=== PATIENT | female | born 1965 | race Caucasian/White ===

== ENCOUNTER 2019-03-20 10:58 | Emergency (ER) | payer OTHER ==
--- OUTSIDE RECORDS SUMMARY | 2019-03-20 11:07 | XMS REPORT | Clinical Summary ---
:1965 Author Organization [facility] Address [address] [place] [address] Care Team Providers Name Role Phone Blayne Land MD Primary Care Provider Allergies Active Allergy Reactions Severity Noted Date Comments Adhesive Tape-Silicones Dermatitis 03/08/2019 Sulfa (Sulfonamide Antibiotics) Rash Low 08/23/2016 Medications Medication Sig Dispensed Refills Start Date End Date Status lisinopril 1 tablet PO 3 08/17/2016 Active (PRINIVIL,ZESTRIL) 5 daily mg tablet traZODone (DESYREL) 1 tablet PO at 3 08/17/2016 Active 100 MG tablet night. CHOLECALCIFEROL, Take 1 tablet by 0 Active VITAMIN D3, (VITAMIN mouth daily. 1, D3 ORAL) 000 IU PO daily FOLIC ACID/VIT B Take 1 tablet by 0 Active COMPLEX AND C mouth daily. (NEPHRO-VINCE ORAL) esomeprazole (NexIUM) Take 40 mg by 0 Active 40 MG capsule mouth daily before breakfast. calcitriol Take 0.25 mcg by 0 Active (ROCALTROL) 0.25 MCG mouth daily. capsule darbepoetin vero in Inject 100 mg as 0 Active polysorbat (ARANESP, directed. IN POLYSORBATE, INJ) docusate sodium Take 1 capsule 20 capsule 0 03/12/2019 03/22/2019 Active (COLACE) 100 MG (100 mg total) capsule by mouth 2 (two) times a day for 10 days. traMADol (ULTRAM) 50 Take 1 tablet 30 tablet 0 03/12/2019 03/22/2019 Active mg tablet (50 mg total) by mouth every 8 (eight) hours as needed for moderate pain for up to 10 days. 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 Lab Lab Flory Cruz MD 03/06/2019 Lab Lab Flory Cruz MD 03/01/2019 Pre-Admit Testing Pre-Admission Jose Ramon Grijalva Preoperative Appointment Testing MD Eliud testing (Primary Dx) 02/27/2019 Telephone Transplant Kendra Osman Appointment 02/26/2019 Telephone Transplant SENTHIL Martinez Order JAMES Estrada 02/07/2019 Hospital Encounter Radiology Flory Cruz ESRD (end stage MD Aubree renal disease) ([facility]) 02/07/2019 Hospital Encounter Procedural Flory Cruz ESRD (end stage Cardiology MD Aubree renal disease) ([facility]) 02/07/2019 Office Visit Transplant Jose Ramon Samano MD Carrettin, Jennifer, LCSW 02/07/2019 Office Visit Transplant Vickey Schmidt ESRD (end stage MD Christal renal disease) ([facility]) (Primary Dx) 02/07/2019 Office Visit Transplant Flory Cruz ESRD (end stage MD Aubree renal disease) ([facility]) 02/01/2019 Hospital Encounter Radiology Jose Ramon Grijalva MD disease 02/01/2019 Hospital Encounter Radiology Jose Ramon Grijalva MD 02/01/2019 Hospital Encounter Transplant Joyce Paz ESRD (end stage MD Siri renal disease) ([facility]) 01/29/2019 Transcribe Orders Access Jose Ramon Grijalva MD (Primary Dx) 01/22/2019 Telephone Transplant Kendra Osman Appointment 01/16/2019 Documentation Transplant Michelle Butler, LAST 01/16/2019 Orders Only Transplant Maranon, ESRD (end stage Michelle, military professional disease) ([facility]) (Primary Dx) 01/08/2019 Hospital Encounter Transplant Flory Cruz MD 01/08/2019 Orders Only Transplant Maranon, ESRD (end stage Michelle, military professional disease) ([facility]) (Primary Dx) 01/03/2019 Hospital Encounter Transplant Joyce Paz ESRD (end stage Siri, renal disease) ([facility]) 12/28/2018 Orders Only Transplant Maranon, ESRD (end stage Michelle, military professional disease) ([facility]) (Primary Dx) 12/28/2018 Orders Only Transplant Maranon, ESRD (end stage Michelle, military professional disease) ([facility]) (Primary Dx) 12/11/2018 Telephone Transplant Natacha Cavanaugh MA Appointment 11/23/2018 Hospital Encounter Transplant Flory Cruz ESRD (end stage Aubree, renal disease) ([facility]) 10/26/2018 Hospital Encounter Transplant Flory Cruz ESRD (end stage MD Aubree renal disease) ([facility]) 10/03/2018 Documentation Transplant Oscar Cramer TXP - AET[employer] NME - RENAL TXP APPRVL 09/28/2018 Hospital Encounter Transplant Flory Cruz ESRD (end stage MD Aubree renal disease) ([facility]) 08/31/2018 Hospital Encounter Transplant Flory Cruz ESRD (end stage Aubree, renal disease) Jose Ramon Samano ([facility]) MD Samson 07/26/2018 Hospital Encounter Transplant Flory Cruz ESRD (end stage MD Aubree renal disease) ([facility]) 06/29/2018 Hospital Encounter Transplant Kip Cruzmed ESRD (end stage Osajames, renal disease) ([facility]) 06/01/2018 Hospital Encounter Transplant Kip Cruzmed ESRD (end stage Osajames, renal disease) 04/27/2018 Hospital Encounter Transplant Kip Cruzmed ESRD (end stage Osajames, renal disease) 03/30/2018 Hospital Encounter Transplant Kip Cruzmed ESRD (end stage Osama, renal disease) 03/30/2018 Telephone Transplant Natacha Cavanaugh MA Appointment after 03/19/2018 Family History Medical History Relation Name Comments Heart disease Brother Freddy Heart disease Father Clif Kidney disease Father Clif Diabetes Mother Angela mohan Heart disease Mother Angela mohan Cancer Sister Desiree Heart disease Sister Desiree Heart disease Sister Мария Relation Name Status Comments Brother Freddy Alive Father Clif (Age 76) Heart disease / Kidney disease Mother Angela preston (Age 80) Sister Desiree Alive breast cancer Sister Whitney Alive Gastric bypass surgery Sister Мария (Age 62) heart disease Social History Tobacco Use Types Packs/Day Years Used Date Never Smoker Smokeless Tobacco: Never Used Alcohol Use Drinks/Week oz/Week Comments No Sex Assigned at Date Recorded Not on file Job Start Date Occupation Industry Not on file Not on file Not on file Travel History Travel Start Travel End No recent travel history available. Last Filed Vital Signs Vital Sign Reading Time Taken Blood Pressure 122/66 03/12/2019 12:14 PM CDT Pulse 77 03/12/2019 12:14 PM CDT Temperature 36.3 C (97.4 F) 03/12/2019 12:14 PM CDT Respiratory Rate 16 03/12/2019 12:14 PM CDT Oxygen Saturation 97% 03/12/2019 12:14 PM CDT Inhaled Oxygen Concentration - - Weight 80.1 kg (176 lb 8 oz) 03/10/2019 3:49 PM CDT Height 170.2 cm (5' 7") 03/08/2019 6:00 AM CDT Body Mass Index 27.64 03/08/2019 6:00 AM CDT Plan of Treatment Date Type Specialty Care Team Description 03/29/2019 Lab Transplant Joyce Paz MD [address] [facility] [address] [place] [address] [phone] 04/26/2019 Lab Transplant Joyce Paz MD [address] [facility] [address] [place] [address] [phone] 05/31/2019 Lab Transplant Joyce Paz MD [address] [facility] [address] [place] [address] [phone] 06/28/2019 Lab Transplant Joyce Paz MD [address] [facility] [address] [place] [address] [phone] 07/26/2019 Lab Transplant Joyce Paz MD [address] [facility] [address] [place] [address] [phone] 08/30/2019 Lab Transplant Joyce Paz MD [address] [facility] [address] [place] [address] [phone] Health Maintenance Due Date Last Done Comments SHINGLES VACCINES (#1) 2015 INFLUENZA VACCINE 04/18/2019 07/15/2018 BREAST CANCER SCREENING 09/04/2019 09/04/2017, 09/04/2017 COLONOSCOPY SCREENING 07/26/2022 07/26/2017 Implants Implanted Type Area Integration Technician Device Shelf Model / Identifier Expiration Serial / Date Lot Clip Ligtng Hem-O-Jaylyn Endoscpc Aplr [facility] Lg - [id number] Medical N/A: N/A WECK CLOSURE [id number] / Implanted: Qty: 2 on 03/08/2019 by Jose Ramon Grijalva MD Clips for SYSTEMS / Internal Use Dilator Baln Fxdwr [id number] 15-16.5-18mm Cre - [id number] Surgical N/A: N/A [facility] ENDOSCOPY [id number] / Implanted: 07/26/2017 (Quantity not on file) Implants; / Expanders; Extenders; Surgical Wires Procedures Procedure Name Priority Date/Time Associated Comments Diagnosis HEMOGLOBIN & Routine 03/12/2019 6:00 Results for this HEMATOCRIT AM CDT procedure are in the results section. ESTIMATED GFR Routine 03/12/2019 4:00 Results for this AM CDT procedure are in the results section. BASIC METABOLIC PANEL Routine 03/12/2019 4:00 Results for this AM CDT procedure are in the results section. TRANSFUSE RED BLOOD STAT 03/11/2019 11:31 CELLS AM CDT IONIZED CALCIUM Routine 03/11/2019 8:20 Results for this AM CDT procedure are in the results section. SMEAR REVIEW Routine 03/11/2019 5:00 Results for this AM CDT procedure are in the results section. ESTIMATED GFR Routine 03/11/2019 5:00 Results for this AM CDT procedure are in the results section. ALBUMIN LEVEL Routine 03/11/2019 5:00 Results for this AM CDT procedure are in the results section. IONIZED CALCIUM Routine 03/11/2019 5:00 Results for this AM CDT procedure are in the results section. BASIC METABOLIC PANEL Routine 03/11/2019 5:00 Results for this AM CDT procedure are in the results section. HEMOGLOBIN & Routine 03/11/2019 5:00 Results for this HEMATOCRIT AM CDT procedure are in the results section. HEMODIALYSIS Routine 03/10/2019 4:46 PM CDT PREPARE RBC STAT 03/10/2019 2:35 Results for this PM CDT procedure are in the results section. TYPE AND SCREEN Routine 03/10/2019 2:35 Results for this PM CDT procedure are in the results section. HEMOGLOBIN & STAT 03/10/2019 2:35 Results for this HEMATOCRIT PM CDT procedure are in the results section. ESTIMATED GFR Routine 03/10/2019 5:15 Results for this AM CDT procedure are in the results section. TOTAL IRON BINDING Routine 03/10/2019 5:15 Results for this CAPACITY AM CDT procedure are in the results section. FERRITIN LEVEL Routine 03/10/2019 5:15 Results for this AM CDT procedure are in the results section. PHOSPHORUS LEVEL Routine 03/10/2019 5:15 Results for this AM CDT procedure are in the results section. MAGNESIUM LEVEL Routine 03/10/2019 5:15 Results for this AM CDT procedure are in the results section. BASIC METABOLIC PANEL Routine 03/10/2019 5:15 Results for this AM CDT procedure are in the results section. HEMOGLOBIN & Routine 03/10/2019 5:15 Results for this HEMATOCRIT AM CDT procedure are in the results section. HEPATITIS B SURFACE Routine 03/09/2019 10:36 Results for this ANTIGEN AM CDT procedure are in the results section. HC COMPLETE BLD COUNT Routine 03/09/2019 7:25 Results for this W/AUTO DIFF AM CDT procedure are in the results section. ESTIMATED GFR Routine 03/09/2019 4:00 Results for this AM CDT procedure are in the results section. BASIC METABOLIC PANEL Routine 03/09/2019 4:00 Results for this AM CDT procedure are in the results section. HEMOGLOBIN & STAT 03/08/2019 7:55 Results for this HEMATOCRIT PM CDT procedure are in the results section. HEMODIALYSIS Routine 03/08/2019 5:24 PM CDT SURGICAL PATHOLOGY Routine 03/08/2019 3:22 Results for this REQUEST PM CDT procedure are in the results section. ESTIMATED GFR STAT 03/08/2019 1:28 Results for this PM CDT procedure are in the results section. BASIC METABOLIC PANEL STAT 03/08/2019 1:28 Results for this PM CDT procedure are in the results section. HEMOGLOBIN & STAT 03/08/2019 1:15 Results for this HEMATOCRIT PM CDT procedure are in the results section. MI AN ELECTIVE Routine 03/08/2019 8:27 ENDOTRACHEAL AIRWAY AM CDT Procedure Note - Priya Zepeda CRNA - 03/08/2019 8:27 AM CDT Airway Date/Time: 03/08/2019 8:27 AM Performed by: Priya Zepeda CRNA Authorized by: Tristin Price DO Location: OR Urgency: Elective Difficult Airway: No Anesthesiologist: Tristin Price DO Resident/ENTRY LEVEL PARALEGAL/AA: Priya Zepeda CRNA Preoxygenated with 100% O2: Yes C-spine Precautions Maintained Throughout: Yes Mask Ventilation: Easy mask (w OPA) Final Airway Type: Endotracheal airway Final Endotracheal Airway: ETT Technique Used: Direct laryngoscopy Devices/Methods Used in Placement: Intubating stylet Insertion Site: Oral Blade Type: Cristina Laryngoscope Blade/Videolaryngoscope Blade Size: 2 ETT Size (mm): 7.0 Measured from: Lips ETT to Lips (cm): 22 Placement Verified by: CO2 detection, direct visualization and equal breath sounds Laryngoscopic view: Grade I - full view of glottis Rapid Sequence Induction (RSI): No Number of Attempts at Approach: 1 Eyes taped/ lubed after LOLR, atraumatic DL, lips/teeth unchanged from preop conditions NEPHRECTOMY, 03/08/2019 7:30 Polycystic kidney LAPAROSCOPIC AM CDT disease POC PANEL Routine 03/08/2019 6:42 Results for this AM CDT procedure are in the results section. ESTIMATED GFR Routine 03/08/2019 6:42 Results for this AM CDT procedure are in the results section. SINGLE ANTIGEN BEADS Routine 03/06/2019 2:52 Results for this PM CDT procedure are in the results section. TYPE AND SCREEN Routine 03/01/2019 11:09 Preoperative testing Results for this AM CDT procedure are in the results section. GRAM STAIN Routine 02/07/2019 1:37 Results for this PM CDT procedure are in the results section. URINE CULTURE Routine 02/07/2019 1:37 Results for this PM CDT procedure are in the results section. XR CHEST 2 VW Routine 02/07/2019 12:11 ESRD (end stage Results for this PM CDT renal disease) ([facility]) procedure are in the results section. C1Q CLASS 1 & 2 Routine 02/07/2019 10:45 Results for this ANTIBODY AM CDT procedure are in the results section. SAB CLASS 1 & 2 WITH Routine 02/07/2019 10:45 Results for this DILUTIONS AM CDT procedure are in the results section. SYPHILIS TOTAL ANTIBODY Routine 02/07/2019 10:45 Results for this AM CDT procedure are in the results section. ESTIMATED GFR Routine 02/07/2019 10:45 Results for this AM CDT procedure are in the results section. URINALYSIS SCREEN AND Routine 02/07/2019 10:45 ESRD (end stage Results for this MICROSCOPY, WITH REFLEX AM CDT renal disease) ([facility]) procedure are in TO CULTURE the results section. TB T-SPOT Routine 02/07/2019 10:45 ESRD (end stage Results for this AM CDT renal disease) ([facility]) procedure are in the results section. HEPATITIS C VIRUS Routine 02/07/2019 10:45 ESRD (end stage Results for this QUANTITATIVE BY PCR AM CDT renal disease) ([facility]) procedure are in the results section. PARATHYROID HORMONE Routine 02/07/2019 10:45 ESRD (end stage Results for this AM CDT renal disease) ([facility]) procedure are in the results section. KARLENE-LOPEZ VIRUS Routine 02/07/2019 10:45 ESRD (end stage Results for this ANTIBODY TEST AM CDT renal disease) ([facility]) procedure are in the results section. CYTOMEGALOVIRUS AB, IGM Routine 02/07/2019 10:45 ESRD (end stage Results for this AM CDT renal disease) ([facility]) procedure are in the results section. CYTOMEGALOVIRUS AB, IGG Routine 02/07/2019 10:45 ESRD (end stage Results for this AM CDT renal disease) ([facility]) procedure are in the results section. LDH Routine 02/07/2019 10:45 ESRD (end stage Results for this AM CDT renal disease) ([facility]) procedure are in the results section. PHOSPHORUS LEVEL Routine 02/07/2019 10:45 ESRD (end stage Results for this AM CDT renal disease) ([facility]) procedure are in the results section. TRIGLYCERIDES Routine 02/07/2019 10:45 ESRD (end stage Results for this AM CDT renal disease) ([facility]) procedure are in the results section. CHOLESTEROL Routine 02/07/2019 10:45 ESRD (end stage Results for this AM CDT renal disease) ([facility]) procedure are in the results section. C-PEPTIDE Routine 02/07/2019 10:45 ESRD (end stage Results for this AM CDT renal disease) ([facility]) procedure are in the results section. PARTIAL THROMBOPLASTIN Routine 02/07/2019 10:45 ESRD (end stage Results for this TIME (PTT) AM CDT renal disease) ([facility]) procedure are in the results section. PROTHROMBIN TIME WITH Routine 02/07/2019 10:45 ESRD (end stage Results for this INR AM CDT renal disease) ([facility]) procedure are in the results section. HC COMPLETE BLD COUNT Routine 02/07/2019 10:45 ESRD (end stage Results for this W/AUTO DIFF AM CDT renal disease) ([facility]) procedure are in the results section. HEPATITIS C ANTIBODY Routine 02/07/2019 10:45 ESRD (end stage Results for this AM CDT renal disease) ([facility]) procedure are in the results section. HEPATITIS B SURFACE AB, Routine 02/07/2019 10:45 ESRD (end stage Results for this QUANTITATIVE AM CDT renal disease) (HCC) procedure are in the results section. HEPATITIS B SURFACE Routine 02/07/2019 10:45 ESRD (end stage Results for this ANTIGEN AM CDT renal disease) (HCC) procedure are in the results section. HEPATITIS B SURFACE Routine 02/07/2019 10:45 ESRD (end stage Results for this ANTIBODY AM CDT renal disease) (HCC) procedure are in the results section. HEPATITIS B CORE Routine 02/07/2019 10:45 ESRD (end stage Results for this ANTIBODY TOTAL AM CDT renal disease) (HCC) procedure are in the results section. HIV AG/AB COMBINATION Routine 02/07/2019 10:45 ESRD (end stage Results for this AM CDT renal disease) (HCC) procedure are in the results section. COMPREHENSIVE METABOLIC Routine 02/07/2019 10:45 ESRD (end stage Results for this PANEL AM CDT renal disease) (HCC) procedure are in the results section. ECHOCARDIOGRAM 2D Routine 02/07/2019 9:00 ESRD (end stage Results for this COMPLETE W MMODE AM CDT renal disease) (HCC) procedure are in SPECTRAL COLOR DOPPLER the results (65446) section. MRI PELVIS WO CONTRAST Routine 02/01/2019 3:12 Polycystic kidney Results for this PM CDT procedure are in the results section. MRI ABDOMEN WO CONTRAST Routine 02/01/2019 2:45 Polycystic kidney Results for this PM CDT disease procedure are in the results section. SINGLE ANTIGEN BEADS Routine 02/01/2019 12:20 Results for this PM CDT procedure are in the results section. SINGLE ANTIGEN BEADS Routine 01/03/2019 1:05 Results for this PM CDT procedure are in the results section. C1Q CLASS 1 & 2 Routine 11/23/2018 9:57 Results for this ANTIBODY AM HOOP MAKER HELPER MACHINE procedure are in the results section. SINGLE ANTIGEN BEADS Routine 11/23/2018 9:57 Results for this AM HO[employer] MAKER HELPER MACHINE procedure are in the results section. C1Q CLASS 1 & 2 Routine 10/26/2018 11:07 Results for this ANTIBODY AM HOOP MAKER HELPER MACHINE procedure are in the results section. SINGLE ANTIGEN BEADS Routine 10/26/2018 11:07 Results for this AM HOOP MAKER HELPER MACHINE procedure are in the results section. C1Q CLASS 1 & 2 Routine 09/28/2018 11:33 Results for this ANTIBODY AM HOOP MAKER HELPER MACHINE procedure are in the results section. SINGLE ANTIGEN BEADS Routine 09/28/2018 11:33 Results for this AM HOOP MAKER HELPER MACHINE procedure are in the results section. C1Q CLASS 1 & 2 Routine 08/31/2018 8:50 Results for this ANTIBODY AM HO[employer] MAKER HELPER MACHINE procedure are in the results section. SINGLE ANTIGEN BEADS Routine 08/31/2018 8:50 Results for this AM HO[employer] MAKER HELPER MACHINE procedure are in the results section. C1Q CLASS 1 & 2 Routine 07/26/2018 10:05 Results for this ANTIBODY AM HOOP MAKER HELPER MACHINE procedure are in the results section. SINGLE ANTIGEN BEADS Routine 07/26/2018 10:05 Results for this AM HOOP MAKER HELPER MACHINE procedure are in the results section. C1Q CLASS 1 & 2 Routine 06/29/2018 12:21 Results for this ANTIBODY PM CDT procedure are in the results section. SINGLE ANTIGEN BEADS Routine 06/29/2018 12:21 Results for this PM CDT procedure are in the results section. C1Q CLASS 1 & 2 Routine 06/01/2018 11:40 Results for this ANTIBODY AM CDT procedure are in the results section. SINGLE ANTIGEN BEADS Routine 06/01/2018 11:40 Results for this AM CDT procedure are in the results section. C1Q CLASS 1 & 2 Routine 04/27/2018 9:10 Results for this ANTIBODY AM CDT procedure are in the results section. SINGLE ANTIGEN BEADS Routine 04/27/2018 9:10 Results for this AM CDT procedure are in the results section. SINGLE ANTIGEN BEADS Routine 03/30/2018 1:55 Results for this PM CDT procedure are in the results section. C1Q CLASS 1 & 2 Routine 03/30/2018 1:55 Results for this ANTIBODY PM CDT procedure are in the results section. after 03/19/2018 Results Hemoglobin & hematocrit (03/12/2019 6:00 AM CDT)Only the most recent of6 resultswithin the time period is included. [facility] HGB 8.6 (L) 12.0 - 16.0 g/dL [facility] HCT 26.6 (L) 37.0 - 47.0 % [facility] Specimen Blood Performing Organization Address City/[facility] Cent[facility]ode Phone Number [facility] DEPARTMENT OF PATHOLOGY AND [address] [place] [address] Estimated GFR (03/12/2019 4:00 AM CDT)Only the most recent of7 resultswithin the time period is included. [facility] Estimated GFR 8 (A) mL/min/1.73 [facility] Comment: HOSPITAL CatergoryUnitsInterpretation G1 >=90 Normal or high G2 60-89Mildly decreased C6w25-14Wskpnc to moderately decreased W5v99-59Fzneefqlli to severely decreased G4 15-29Severely decreased G5 <15Kidney failure The eGFR was calculated using the Chronic Kidney Disease Epidemiology Collaboration (CKD-EPI) equation. Interpretation is based on recommendations of the National Kidney Foundation-Kidney Disease Outcomes Quality Initiative (NKF-KDOQI) published in 2014. Specimen Plasma specimen Performing Organization Address City/[facility]/Zipcode Phone Number [facility] DEPARTMENT OF PATHOLOGY AND [address] [place] [address] Basic metabolic panel (03/12/2019 4:00 AM CDT)Only the most recent of5 resultswithin the time period is included. [facility] Sodium 134 (L) 135 - 148 mEq/L [facility] Potassium 3.8 3.5 - 5.0 mEq/L [facility] Chloride 92 (L) 98 - 112 mEq/L [facility] CO2 27 24 - 31 mEq/L [facility] Anion gap 15@ANIO 7 - 15 mEq/L [facility] BUN 25 (H) 6 - 20 mg/dL [facility] Creatinine 5.72 (H) 0.50 - 0.90 mg/dL [facility] Glucose 88 65 - 99 mg/dL [facility] Calcium 8.6 8.3 - 10.2 mg/dL [facility] Specimen Plasma specimen Performing Organization Address City/[facility] Centercode Phone Number [facility] DEPARTMENT OF PATHOLOGY AND [address] [place] [address] Transfuse RBC (03/11/2019 11:31 AM CDT)Only the most recent of2 resultswithin the time period is included.Ionized calcium (03/11/2019 8:20 AM CDT)Only the most recent of2 resultswithin the time period is included. Pathologist [facility] pH 7.37 [facility] Ionized calcium 1.12 1.11 - 1.32 mmol/L [facility] Specimen Plasma specimen Performing Organization Address [facility]/[place] Phone Number [facility] DEPARTMENT OF PATHOLOGY AND [address] [place] [phone] Smear review (03/11/2019 5:00 AM CDT) Pathologist [facility] Smear review Smear Reviewed [facility] Specimen Performing Organization Address [facility]/[place] Phone Number [facility] DEPARTMENT OF PATHOLOGY AND [address] [place] [phone] Albumin level (03/11/2019 5:00 AM CDT) Pathologist [facility] Albumin 2.4 (L) 3.5 - 5.0 g/dL [facility] Specimen Plasma specimen Performing Organization Address [facility]/[place] Phone Number [facility] DEPARTMENT OF PATHOLOGY AND [address] [place] [phone] Prepare RBC, 1 Units (03/10/2019 2:35 PM CDT) Product name Red Cells AS1 [facility] – [place] Unit number [id number] [facility] Product code [id number] [facility] Dispense status Transfused [facility] Blood expiration [id number] [facility] Blood type code 7300 [facility] Blood type B POSITIVE [facility] Specimen Blood Performing Organization Address City/[facility]/[place] Phone Number [facility] DEPARTMENT OF PATHOLOGY AND [address] [place] [phone] Type and screen (03/10/2019 2:35 PM CDT)Only the most recent of2 resultswithin the time period is included. ABO grouping B [facility] Rh type POS [facility] Antibody screen (gel) NEG [facility] Specimen Performing Organization Address [facility]/[place] Phone Number [facility] DEPARTMENT OF PATHOLOGY AND [address] [place] [address] [phone] Total iron binding capacity (03/10/2019 5:15 AM CDT) Iron level 20 (L) 37 - 145 ug/dL [facility] Iron binding capacity 177 (L) 200 - 400 ug/dL [facility] % Saturation 11.3 (L) 15.0 - 38.0 % [facility] Specimen Plasma specimen Performing Organization Address [facility] Phone Number [facility] DEPARTMENT OF PATHOLOGY AND [address] [place] [address] [phone] Phosphorus level (03/10/2019 5:15 AM CDT)Only the most recent of2 resultswithin the time period is included. Phosphorus 3.3 2.4 - 4.5 mg/dL [facility] Specimen Plasma specimen Performing Organization Address City/[facility] Phone Number [facility] DEPARTMENT OF PATHOLOGY AND [address] [place] [phone] Magnesium level (03/10/2019 5:15 AM CDT) Magnesium 1.9 1.6 - 2.6 mg/dL [facility] Specimen Plasma specimen Performing Organization Address City/[facility]/Zipcode Phone Number [facility] DEPARTMENT OF PATHOLOGY AND [address] [place] [phone] [place] [address] 15942 Ferritin level (03/10/2019 5:15 AM CDT) Ferritin level 89 13 - 150 ng/mL [facility] Specimen Plasma specimen Performing Organization Address City/[facility] Phone Number [facility] DEPARTMENT OF PATHOLOGY AND [address] [place] [address] [phone] Hepatitis B surface antigen (03/09/2019 10:36 AM CDT)Only the most recent of2 resultswithin the time period is included. Hepatitis B surface Non-reactive Non-reactive [facility] Specimen Performing Organization Address City/[facility]ercode Phone Number [facility] DEPARTMENT OF PATHOLOGY AND [address] [place] [address] [phone] CBC with platelet and differential (03/09/2019 7:25 AM CDT)Only the most recent of2 resultswithin the time period is included. WBC 8.86 4.50 - 11.00 [facility] k/uL [facility] RBC 2.43 (L) 4.20 - 5.50 [facility] m/[facility] HGB 7.2 (L) 12.0 - 16.0 [facility] g/dL [facility] HCT 22.7 (L) 37.0 - 47.0 % [facility] MCV 93.4 82.0 - 100.0 [facility] MCH 29.6 27.0 - 34.0 pg [facility] MCHC 31.7 31.0 - 37.0 [facility] RDW - SD 47.3 37.0 - 55.0 fL [facility] MPV 10.9 8.8 - 13.2 fL [facility] Platelet count 146 (L) 150 - 400 k/uL [facility] Nucleated RBC 0.00 /100 WBC [facility] Neutrophils 81.4 (H) 39.0 - 69.0 % [facility] Lymphocytes 9.4 (L) 25.0 - 45.0 % [facility] Monocytes 8.7 0.0 - 10.0 % [facility] Eosinophils 0.1 0.0 - 5.0 % [facility] Basophils 0.1 0.0 - 1.0 % [facility] Immature granulocytes 0.3Comment: 0.0 - 1.0 % [facility] "Immature HOSPITAL granulocytes" (promyelocytes , myelocytes, metamyelocytes ) Specimen Blood Performing Organization Address City/[facility] Phone Number [facility] DEPARTMENT OF PATHOLOGY AND [address] [place] [address] [phone] Surgical pathology request (03/08/2019 3:22 PM CDT) [facility] DEPARTMENT OF PATHOLOGY AND GENOMIC MEDICINE Surgical pathology See link below [facility] DEPARTMENT OF report for PDF Lab PATHOLOGY AND Report GENOMIC MEDICINE Result status This is Final [facility] DEPARTMENT OF Report for PATHOLOGY AND [id number] GENOMIC MEDICINE Specimen Performing Organization Address [facility]/[place] Phone Number [facility] DEPARTMENT OF PATHOLOGY AND [address] [place] [address] [phone] GENOMIC MEDICINE POC panel (03/08/2019 6:42 AM CDT) POC sodium 139 135 - 148 [facility] mmol/L [facility] POC potassium 3.8 3.5 - 5.0 [facility] chloride 105 99 - 109 mmol/L [facility] POC CO2 26 24 - 31 mmol/L [facility] POC glucose 99 65 - 99 mg/dL [facility] POC BUN 31 (H) 8 - 24 mg/dL [facility] POC creatinine 4.8 (H) 0.5 - 0.9 mg/dl [facility] POC hematocrit 32 (L) 37 - 47 % [facility] POC anion gap 12 8 - 20 mmol/L [facility] Comment: HOSPITAL Meter ID: [id number] Spring Inspector: Fernando Cardoso Specimen Performing Organization Address City/[facility]/Zipcode Phone Number [facility] DEPARTMENT OF PATHOLOGY AND [address] [place], [place] [phone] GENOMIC MEDICINE [address] [address] Single antigen beads (03/06/2019 2:52 PM CDT)Only the most recent of12 resultswithin the time period is included. SAB serum ID [id number] [facility] SAB serum collection 03/06/2019 02:52 [facility]PITAL SAB class I antibody Negative [facility] SAB cPRA class I 0 [facility] SAB class II Negative [facility] SAB cPRA class II 0 [facility] Single antigen beads See link below [facility] for PDF Lab HOSPITAL Report Specimen Blood Performing Organization Address [facility] Centercond Phone Number [facility] DEPARTMENT OF PATHOLOGY AND [address] [place] [address] Gram stain (02/07/2019 1:37 PM CDT) Pathologist [facility] Gram stain result Rare WBC's [facility] Moderate Gram positive rods HOSPITAL Comment: Specimen Information Specimen Source: Urine Specimen Site: Clean catch Specimen Urine Performing Organization Address City/[facility] Centercond Phone Number [facility] DEPARTMENT OF PATHOLOGY AND [address] [place] [address] [phone] Urine culture (02/07/2019 1:37 PM CDT) Pathologist [facility] Urine culture Mixed barb <=10-3 col/cc [facility] isolate Comment: HOSPITAL Specimen Information Specimen Source: Urine Specimen Site: Clean catch Specimen Urine Performing Organization Address [facility]/[place] Phone Number [facility] DEPARTMENT OF PATHOLOGY AND [address] [place] [address] XR Chest 2 Vw (02/07/2019 12:11 PM CDT) Specimen Narrative Performed At EXAMINATION:XR CHEST 2 VW RADIANT CLINICAL HISTORY: N18.6 End stage renal disease, transplant update COMPARISON:08/23/2017 IMPRESSION: No active disease in the chest. Lungs are clear. Cardiomediastinal silhouette is within normal limits. No effusion or pneumothorax noted. Visualized osseous structures are intact. [facility]-[id number] Procedure Note Hm Interface, Radiology Results Incoming - 02/07/2019 12:25 PM CDT EXAMINATION: XR CHEST 2 VW CLINICAL HISTORY: N18.6 End stage renal disease, transplant update COMPARISON: 08/23/2017 IMPRESSION: No active disease in the chest. Lungs are clear. Cardiomediastinal silhouette is within normal limits. No effusion or pneumothorax noted. Visualized osseous structures are intact. [id number] Performing Organization Address City/[facility]/Zipcode Phone Number [facility] [address] [place] [address] [phone] SAB class 1 & 2 with dilutions (02/07/2019 10:45 AM CDT) [facility] SAB class 1 & 2 See link below [facility] with dilutions for PDF Lab HOSPITAL Report Specimen Blood Performing Organization Address City/[facility]ercode Phone Number [facility] DEPARTMENT OF PATHOLOGY AND [address] [place] [address] C1Q class 1 & 2 antibody (02/07/2019 10:45 AM CDT)Only the most recent of10 resultswithin the time period is included. [facility] C1Q class 1 & 2 See link below [facility] antibody for PDF Lab HOSPITAL Report Specimen Blood Performing Organization Address [facility] Centercond Phone Number [facility] DEPARTMENT OF PATHOLOGY AND [address] [place] [address] Urinalysis screen and microscopy, with reflex to culture (02/07/2019 10:45 AM CDT) Specimen site Clean catch [facility] Color, UA Straw [facility] Appearance, UA Hazy [facility] Specific gravity, UA 1.009 1.001 - 1.035 [facility] pH, UA 6.0 5.0 - 8.5 [facility] Protein, UA 1+ (A) Negative [facility] Glucose, UA Negative Negative [facility] Ketones, UA Negative Negative [facility] Bilirubin, UA Negative Negative [facility] Blood, UA Negative Negative [facility] Nitrite, UA Negative Negative [facility] Urobilinogen, UA <2.0 <2.0 [facility] Leukocyte esterase, Trace (A) Negative [facility] Epithelial cells, UA 4 /HPF [facility] WBC, UA 5 (H) 0 - 4 /HPF [facility] RBC, UA 1 0 - 5 /HPF [facility] Bacteria, UA None seen None seen [facility] Yeast, UA None seen [facility] Yeast with None seen [facility] pseudohyphae, UA [facility] Specimen Urine Performing Organization Address City/State/Zipcode Phone Number [facility] DEPARTMENT OF PATHOLOGY AND [address] [place] [address] Syphilis total antibody (02/07/2019 10:45 AM CDT) Pathologist [facility] Syphilis total Non-reactiveComment Non-reactive [facility] antibody : No serological HOSPITAL evidence of syphilis infection. Specimen Serum Performing Organization Address City/[facility]/Zipcode Phone Number [facility] DEPARTMENT OF PATHOLOGY AND [address] [place] [address] Karlene-Lopez virus antibody test (02/07/2019 10:45 AM CDT) Pathologist [facility] EBV Ab to viral capsid Positive (A) Negative [facility] Ag, IgG HOSPITAL EBV Ab to viral capsid Negative Negative [facility] Ag, IgM HOSPITAL EBV Ab to nuclear Ag, Positive (A) Negative [facility] IgG HOSPITAL EBV Ab to early (D) Negative Negative [facility] Ag, IgG HOSPITAL Karlene-Lopez virus SEE [facility] antibody COMMENTComment: HOSPITAL interpretation Infection Status: Results may suggest past EBV infection. Specimen Serum Performing Organization Address City/[facility] Centercode Phone Number [facility] DEPARTMENT OF PATHOLOGY AND [address] [place] [address] HIV Ag/Ab combination (02/07/2019 10:45 AM CDT) Pathologist [facility] HIV Ag/Ab combination Non-reactive Non-reactive [facility] Specimen Blood Performing Organization Address City/State/Zipcode Phone Number [facility] DEPARTMENT OF PATHOLOGY AND [address] [place], [place] [phone] TB T-SPOT (02/07/2019 10:45 AM CDT) Pathologist [facility] TB T-SPOT SEE NOTE [facility] RE[facility] Comment: LAB T-SPOT TUBERCULOSIS Nil Control: PASSED Panel A: 0 Panel B: 4 Positive Control: PASSED Result:NEGATIVE NOTE: TMTC INDICATES TOO MANY SPOTS TO COUNT SAT INDICATES THE WELL WAS SATURATED RESULTS INTERPRETATION: RESULTS ARE NEGATIVE WHEN (PANEL A-NIL) OR (PANEL B-NIL) <=4 SPOTS, INCLUDING VALUES LESS THAN ZERO. RESULTS ARE POSITIVE WHEN (PANEL A-NIL) OR (PANEL B-NIL) >=8 SPOTS RESULTS ARE BORDERELINE WHEN EITHER (PANEL A-NIL) OR (PANEL B-NIL)=5,6,0R 7. THE TEST IS INVALID WHEN EITHER OF THE FOLLOWING CONDITIONS IS MET: 1.) THE NIL CONTROL HAS >10 SPOTS 2.) THE MITOGEN (POSITIVE CONTROL) HAS <20 SPOTS AND BOTH (PANEL A-NIL) AND (PANEL B-NIL) <=4 SPOTS. M. TUBERCULOSIS INFECTION UNLIKELY, BUT CANNOT BE EXCLUDED ESPECIALLY WHEN: 1. ANY ILLNESS IS CONSISTENT WITH TB DISEASE. 2. LIKELIHOOD OF PROGRESSION TO DISEASE (e.g. DUE TO IMMUNOSUPPRESSION) IS INCREASED. LIMITATIONS: DIAGNOSING OR EXCLUDING TUBERCULOSIS DISEASE, AND ASSESSING THE PROBABILITY OF LTBI, REQUIRES A COMBINATION OF EPIDEMIOLOGICAL, HISTORICAL, MEDICAL, AND DIAGNOSTIC FINDINGS THAT SHOULD BE TAKEN INTO ACCOUNT WHEN INTERPRETING T-SPOT.TB REFER TO THE MOST RECENT CDC GUIDANCE (HTTP: //WWW.CDC.GOV/NCHSTP/TB) FOR DETAILED RECOMMENDATIONS ABOUT DIAGNOSING TB INFECTION (INCLUDING DISEASE) AND SELECTING PERSONS FOR TESTING. 1.) A FALSE NEGATIVE RESULT CAN BE CAUSED BY INCORRECT BLOOD SAMPLE COLLECTION OR IMPROPER HANDLING OF THE SPECIMEN, AFFECTING LYMPHOCYTE FUNCTION 2.) THE PERFORMANCE OF T-SPOT.TB HAS NOT BEEN ADEQUATELY EVALUATED WITH SPECIMENS FROM INDIVIDUALS YOUNGER THANAGE 17 YEARS, IN WOMEN, AND IN PATIENTS WITH HEMOPHILIA. 3-) A FALSE POSITIVE RESULT WAS OBTAINED FOR T-SPOT.TB WHEN TESTED IN SUBJECTS WITH M. XENOPI, M. KANSASII, AND M. GORDONAE.WHILE ESAT-6 AND CFP-10 ANTIGENS ARE ABSENT FROM BCG STRAINS OF M. BOVIS AND FROM MOST ENVIRONMENTAL MYCOBACTERIA, IT IS POSSIBLE THAT A POSITIVE T-SPOT.TB RESULT MAY BE DUE TO INFECTION WITH M. KANSASII, M. SZULGAI, M. GORDONAE, OR M. MARINUM. ALTERNATIVE TESTS WOULD BE REQUIRED IF THESE INFECTIONS ARE SUSPECTED. 4.) A NEGATIVE TEST RESULT DOES NOT EXCLUDE THE POSSIBILITY OF EXPOSURE TO, OR INFECTION WITH, M. TUBERCULOSIS. PATIENTS WITH RECENT EXPOSURE TO TB INFECTED INDIVIDUALS EXHIBITING A NEGATIVE T-SPOT.TB RESULT SHOULD BE CONSIDERED FOR RETESTING WITHIN 6 WEEKS OR IF OTHER RELEVANT CLINICAL SYMPTOMS INDICATE POSSIBLE INFECTION. 5.) A POSITIVE TEST RESULT DOES NOT RULE IN ACTIVE TB DISEASE; OTHER TESTS SHOULD BE PERFORMED TO CONFIRM THE DIAGNOSIS OF ACTIVE TB DISEASE SUCH SPUTUM SMEAR AND CULTURE, PCR AND CHEST RADIOGRAPHY. 6.) T-SPOT.TB TEST HAS NOT BEEN EVALUATED IN SUBJECTS WHO HAVE RECEIVED >1 MONTH OF ANTI-TB THERAPY. 7. ) REFRIGERATED AND FROZEN SAMPLES ARE NOT RECOMMENDED FOR USE WITH T=SPOT.TB TEST. Performed by: [facility] Molecular Tuberculosis Laboratory [facility] ([id number]) [place], [place] [address] Specimen Blood Performing Organization Address City/State/Zipcode Phone Number [facility] DEPARTMENT OF PATHOLOGY AND [address] [place] [phone] GENOMIC MEDICINE [facility] Hepatitis B surface Ab, quantitative (02/07/2019 10:45 AM CDT) [facility] Hepatitis B surface <3.10 IU/L [facility] REF LAB Ab Comment: The anti-HBs is less than 10 IU/L and is therefore negative. There is no evidence of recovery from hepatitis B infection or evidence of antibody response to HBV vaccination. An anti-HBs result greater than or equal to 10 IU/L implies immunity. For post-vaccination antibody testing guidelines for the general public refer to MMWR September 09, 2005/Vol. 54(No. 16);1-23, and for healthcare workers refer to MMWR September 06, 2013/Vol. 62(No. 10);1-19. Reference Interval: anti-HBs 9.99 IU/L or less ....... Negative 10.00 IU/L or greater .... Positive Results greater than 1,000.00 IU/L are reported as greater than 1,000.00 IU/L. This assay should not be used for blood donor screening, associated re-entry protocols, or for screening Human Cell, Tissues and Cellular and Tissue-Based Products (HCT/P). Performed by [employer], [address] [place] [id number] [email or web address], Krystian Nelson MD - Lab. Director Specimen Serum Performing Organization Address City/State/Zipcode Phone Number [facility] [address] [place] [address] [facility] [address] [place] [address] Hepatitis C antibody (02/07/2019 10:45 AM CDT) Hepatitis C Ab Non-reactive Non-reactive [facility] Specimen Blood Performing Organization Address City/[facility] Phone Number [facility] DEPARTMENT OF PATHOLOGY AND [address] [place] [address] Cytomegalovirus Ab, IgM (02/07/2019 10:45 AM CDT) [facility] Cytomegalovirus Ab, IgM Negative Negative [facility] Specimen Serum Performing Organization Address [facility]/[place] Phone Number [facility] DEPARTMENT OF PATHOLOGY AND [address] [place] [phone] Hepatitis B core antibody total (02/07/2019 10:45 AM CDT) Pathologist [facility] Hepatitis B core Non-reactive Non-reactive [facility] HOSPITAL Specimen Blood Performing Organization Address [facility]/[place] Phone Number [facility] DEPARTMENT OF PATHOLOGY AND [address] [place] [address] Hepatitis C virus quantitative by PCR (02/07/2019 10:45 AM CDT) [facility] Hepatitis C Not-Detected Not-Detected [facility] quantitative, PCR IU/mL [facility] Hepatitis C See link below [facility] quantitative, PCR for PDF Lab HOSPITAL ReportComment: Specimen Blood Performing Organization Address City/[facility]/Zipcode Phone Number [facility] DEPARTMENT OF PATHOLOGY AND [address] [place] [address] C-peptide (02/07/2019 10:45 AM CDT) [facility] C-peptide 6.4 (H) 1.1 - 4.4 ng/mL [facility] Specimen Plasma specimen Performing Organization Address City/[facility] Cent[facility] Phone Number [facility] DEPARTMENT OF PATHOLOGY AND [address] [place] [address] [place] [address] Hepatitis B surface antibody (02/07/2019 10:45 AM CDT) Pathologist [facility] Hepatitis B surface Non-reactive Non-reactive [facility] Specimen Blood Performing Organization Address City/State/Zipcode Phone Number [facility] DEPARTMENT OF PATHOLOGY AND [address] [place] [phone] [place] [address] Cytomegalovirus Ab, IgG (02/07/2019 10:45 AM CDT) [facility] Cytomegalovirus Ab, IgG NegativeComment: Negative [facility] Negative; No CMV RASTAFARI IgG antibodies HOSPITAL were detected. Specimen Serum Performing Organization Address City/[facility] Centercode Phone Number [facility] DEPARTMENT OF PATHOLOGY AND [address] [place] [phone] Partial thromboplastin time, activated (02/07/2019 10:45 AM CDT) [facility] PTT 29.0 23.0 - 36.0 [facility] Comment: [facility] PTT therapeutic range for unfractionated heparin is 61.0-112.0 seconds which corresponds to Anti-Xa 0.3-0.7 U/ml. Specimen Blood Performing Organization Address City/[facility] Centercode Phone Number [facility] DEPARTMENT OF PATHOLOGY AND [address] [place] [phone] Prothrombin time with INR (02/07/2019 10:45 AM CDT) [facility] Prothrombin time 13.2 11.5 - 14.5 [facility] INR 1.0 [facility] Comment: RASTAFARI [facility] International Normalized Ratio (INR) is a therapeutic HOSPITAL monitoring tool for patients who are stable on oral anticoagulant therapy. An INR of 2.0-3.0 is suggested for deep vein thrombosis/pulmonary embolism. Specimen Blood Performing Organization Address City/[facility]/Zipcode Phone Number [facility] DEPARTMENT OF PATHOLOGY AND [address] [place] [address] Triglycerides (02/07/2019 10:45 AM CDT) [facility] Triglycerides 125 <150 mg/dL [facility] Specimen Plasma specimen Performing Organization Address City/[facility] Centercode Phone Number [facility] DEPARTMENT OF PATHOLOGY AND [address] [place] [phone] [place] [address] Parathyroid hormone (02/07/2019 10:45 AM CDT) PTH 47 15 - 65 pg/mL [facility] Specimen Blood Performing Organization Address City/[facility] Centercode Phone Number [facility] DEPARTMENT OF PATHOLOGY AND [address] [place], [place] [phone] [address] [address] LDH (02/07/2019 10:45 AM CDT) [facility] 205 87 - 225 U/L [facility] Specimen Plasma specimen Performing Organization Address City/[facility] [facility] Phone Number [facility] DEPARTMENT OF PATHOLOGY AND [address] [place] [address] Cholesterol (02/07/2019 10:45 AM CDT) Cholesterol 236 (H) <200 mg/dL [facility] Specimen Plasma specimen Performing Organization Address City/[facility] Phone Number [facility] DEPARTMENT OF PATHOLOGY AND [address] [place] [phone] Comprehensive metabolic panel (02/07/2019 10:45 AM CDT) Sodium 143 135 - 148 [facility] mEq/L [facility] Potassium 4.2 3.5 - 5.0 [facility] mEq/L [facility] Chloride 105 98 - 112 mEq/L [facility] CO2 22 (L) 24 - 31 mEq/L [facility] Anion gap 16@ANIO (H) 7 - 15 mEq/L [facility] BUN 41 (H) 6 - 20 mg/dL [facility] Creatinine 4.07 (H) 0.50 - 0.90 [facility] mg/dL [facility] Glucose 84 65 - 99 mg/dL [facility] Calcium 9.6 8.3 - 10.2 [facility] mg/dL [facility] Protein 7.8 6.3 - 8.3 g/dL [facility] Comment: [facility] [place] 4.6-7.0 g/dL 1 week 4.4-7.6 g/dL 7 months-1year5.1-7.3 g/dL 1-2 years5.6-7.5 g/dL >3 years6.0-8.0 g/dL 18-150 6.3-8.3 g/dL Albumin 4.2 3.5 - 5.0 g/dL [facility] A/G ratio 1.2 0.7 - 3.8 [facility] Alkaline phosphatase 64 35 - 104 U/L [facility] AST 18 10 - 35 U/L [facility] ALT 19 5 - 50 U/L [facility] Total bilirubin 0.3 0.0 - 1.2 [facility] mg/dL HOSPITAL Specimen Plasma specimen Performing Organization Address City/State/Zipcode Phone Number [facility] DEPARTMENT OF PATHOLOGY AND [address] [place] [address] [place] [address] Echocardiogram complete w contrast and 3D if needed (02/07/2019 9:00 AM CDT) Specimen Narrative Performed At [facility] Echocardiography Report [address] [place] [address] Pat.Name:BRUNA CEJA Pat.ID:[id number] .Date: 02/07/2019 Refer.MD:FLORY CRUZ MD Exam Time: 8:19:00 AMStudy Type:Routine Echo Height:67inWeight: 172lb BSA: 1.9 x5NLAWow:[birth year]53Y Sex: FEMALEBP: 148/70 HR:74 bpmSonogrphr: Sun Coleman RDCS, RVT Pat. Stat.:Outpatient[facility] Study Status:Final Echo Event ID:[id number] Order ID:[id number] Reason for Study:Renal Transplant Evaluation History / Clinical:Hypertension Procedures:2D Echo, Colorflow Doppler, Strain SUMMARY: Normal biventricular chamber size and systolic function No hemodynamically significant valvular pathology. FINDINGS: LV: LV size is normal. LV EF is normal. Difficult to assess regionalwall motion; however it appears grossly normal. EstimatedEF is 65-69%. LV GLS is normal at -20.6% RV: RV size is normal. RV systolic function is normal. LA: LA volume is upper limits of normal. RA: RA size is normal. AO: Aortic root diameter is normal. CM: No pericardial effusion. AV: No structural AV abnormalities noted. MV: No structural MV abnormalities noted. Mild mitral regurgitation. PV: No structural PV abnormalities noted. TV: No structural TV abnormalities noted. Prado: Normal diastolic function. Other:Estimated PA systolic pressure is 30 mmHg, assuming a mean RAPof 5 mmHg. MEASUREMENTS: 2D Parasternal [place] LVOT 1.9 cmLA Ds 3.5 cm LVIDd4.3 cmIndex 2.3 cm/m Ao An1.9 cm LVIDs2.5 cmAo Rtd 2.5 cm Index1.3 cm/m LV%fs 41.9 % LV Mass 88.5 g(87-129) IVSd 0.8 cmLVM Index 46.6 g/m2 LVPWd0.6 cmRWT 0.3 LA Sng Plane LA Area 19.9 cm2(8.8-23.4) LA Vol62.9 ml Index33.1 ml/m LA LngAx 5.3 cm RA Sng Plane RA Area 14 cm2(8.3-19.5) RA Vol 33.2 ml Index17.5 ml/m RA LngAx 5 cm DOPPLER LVOT Stroke Vol LVOT 1.9 cmLVOT CO 3.6 l/min LVOT TVI24.1 cmLVOT CI 1.9 l/m/m2 LVOT Tm328 msecHR 53 bpm LVOT SV 68.2 ml Signed 02/08/2019 08:01 AM Esther Anthony MD Procedure Note Interface, Radiology Results In - 02/08/2019 8:01 AM CDT Echocardiography Report [address] [place] [address] Pat.Name: BRUNA CEJA Pat.ID: [id number] .Date: 02/07/2019 Refer.MD: FLORY CRUZ MD Exam Time: 8:19:00 AM Study Type:Routine Echo Height: 67in Weight: 172lb BSA: 1.9 m2 Age: 12 1965,53Y Sex: FEMALE BP: 148/70 HR: 74 bpm Sonogrphr: Sun Coleman RDCS, RVT Pat. Stat.:Outpatient Room: [facility] Study Status:Final Echo Event ID:[id number] Order ID: [id number] Reason for Study:Renal Transplant Evaluation History / Clinical:Hypertension Procedures:2D Echo, Colorflow Doppler, Strain SUMMARY: Normal biventricular chamber size and systolic function No hemodynamically significant valvular pathology. FINDINGS: LV: LV size is normal. LV EF is normal. Difficult to assess regional wall motion; however it appears grossly normal. Estimated EF is 65-69%. LV GLS is normal at -20.6% RV: RV size is normal. RV systolic function is normal. LA: LA volume is upper limits of normal. RA: RA size is normal. AO: Aortic root diameter is normal. CM: No pericardial effusion. AV: No structural AV abnormalities noted. MV: No structural MV abnormalities noted. Mild mitral regurgitation. PV: No structural PV abnormalities noted. TV: No structural TV abnormalities noted. [place]: Normal diastolic function. Other: Estimated PA systolic pressure is 30 mmHg, assuming a mean RAP of 5 mmHg. MEASUREMENTS: 2D Parasternal [place] LVOT 1.9 cm LA Ds 3.5 cm LVIDd 4.3 cm Index 2.3 cm/m Ao An 1.9 cm LVIDs 2.5 cm Ao Rtd 2.5 cm Index 1.3 cm/m LV%fs 41.9 % LV Mass 88.5 g (87-129) IVSd 0.8 cm LVM Index 46.6 g/m2 LVPWd 0.6 cm RWT 0.3 LA Sng Plane LA Area 19.9 cm2 (8.8-23.4) LA Vol 62.9 ml Index 33.1 ml/m LA LngAx 5.3 cm RA Sng Plane RA Area 14 cm2 (8.3-19.5) RA Vol 33.2 ml Index 17.5 ml/m RA LngAx 5 cm DOPPLER LVOT Stroke Vol LVOT 1.9 cm LVOT CO 3.6 l/min LVOT TVI 24.1 cm LVOT CI 1.9 l/m/m2 LVOT Tm 328 msec HR 53 bpm LVOT SV 68.2 ml Signed 02/08/2019 08:01 AM Esther Anthony MD Performing Organization Address City/State/Zipcode Phone Number [facility] [phone] [place] [address] MRI Pelvis Wo Contrast (02/01/2019 3:12 PM CDT) Specimen Narrative Performed At EXAMINATION:MRI ABDOMEN WO CONTRAST, MRI PELVIS WO CONTRAST [facility] CLINICAL HISTORY:Q61.3 Polycystic kidneyunspecified TECHNIQUE: Multiplanar multisequence non-contrast MR images of the abdomen and pelvis were obtained. COMPARISON:MRI dated 07/28/2017, CT dated 08/01/2017 IMPRESSION: Abdomen: 1.Innumerable bilateral renal cysts, many with layering hemorrhagic products compatible with autosomal dominant polycystic kidney disease. These are incompletely evaluated without IV contrast. Within these confines, no suspicious solid/invasive mass is identified. 2.Liver involvement is also noted. The largest hepatic cyst measures 6.2 cm. Hepatic cysts appear slightly increased in size from prior examination; for example the 6.2 cm cyst was previously 5.5 cm. 3. Spleen is normal in size. Pancreas and adrenals are within normal limits. 4.Gallbladder is decompressed. There is no biliary dilatation. 5.The abdominal aorta is normal in caliber. There is no regional adenopathy. No suspicious osseous lesions are seen. Pelvis: 1.There is no pelvic mass or adenopathy. 2.The uterus is surgically absent. There is no adnexal mass. 3.The urinary bladder is unremarkable. 4.No suspicious osseous lesions are seen. [facility]-[id number] Procedure Note [facility], Radiology Results Incoming - 02/01/2019 5:14 PM CDT EXAMINATION: MRI ABDOMEN WO CONTRAST, MRI PELVIS WO CONTRAST CLINICAL HISTORY: Q61.3 Polycystic kidney unspecified TECHNIQUE: Multiplanar multisequence non-contrast MR images of the abdomen and pelvis were obtained. COMPARISON: MRI dated 07/28/2017, CT dated 08/01/2017 IMPRESSION: Abdomen: 1. Innumerable bilateral renal cysts, many with layering hemorrhagic products compatible with autosomal dominant polycystic kidney disease. These are incompletely evaluated without IV contrast. Within these confines, no suspicious solid/invasive mass is identified. 2. Liver involvement is also noted. The largest hepatic cyst measures 6.2 cm. Hepatic cysts appear slightly increased in size from prior examination; for example the 6.2 cm cyst was previously 5.5 cm. 3. Spleen is normal in size. Pancreas and adrenals are within normal limits. 4. Gallbladder is decompressed. There is no biliary dilatation. 5. The abdominal aorta is normal in caliber. There is no regional adenopathy. No suspicious osseous lesions are seen. Pelvis: 1. There is no pelvic mass or adenopathy. 2. The uterus is surgically absent. There is no adnexal mass. 3. The urinary bladder is unremarkable. 4. No suspicious osseous lesions are seen. [facility]-[id number] Performing Organization Address City/State/Zipcode Phone Number [facility] [address] [place] [address] MRI Abdomen Wo Contrast (02/01/2019 2:45 PM CDT) Specimen Narrative Performed At EXAMINATION:MRI ABDOMEN WO CONTRAST, [facility] PELVIS [facility] CLINICAL HISTORY:Q61.3 Polycystic kidneyunspecified TECHNIQUE: Multiplanar multisequence non-contrast MR images of the abdomen and pelvis were obtained. COMPARISON:MRI dated 07/28/2017, CT dated 08/01/2017 IMPRESSION: Abdomen: 1.Innumerable bilateral renal cysts, many with layering hemorrhagic products compatible with autosomal dominant polycystic kidney disease. These are incompletely evaluated without IV contrast. Withi n these confines, no suspicious solid/invasive mass is identified. 2.Liver involvement is also noted. The largest hepatic cyst measures 6.2 cm. Hepatic cysts appear slightly increased in size from prior examination; for example the 6.2 cm cyst was previously 5.5 cm. 3. Spleen is normal in size. Pancreas and adrenals are within normal limits. 4.Gallbladder is decompressed. There is no biliary dilatation. 5.The abdominal aorta is normal in caliber. There is no regional adenopathy. No suspicious osseous lesions are seen. Pelvis: 1.There is no pelvic mass or adenopathy. 2.The uterus is surgically absent. There is no adnexal mass. 3.The urinary bladder is unremarkable. 4.No suspicious osseous lesions are seen. [facility]-[id number] Procedure Note Interface, Radiology Results Incoming - 02/01/2019 5:14 PM CDT EXAMINATION: MRI ABDOMEN WO CONTRAST, MRI PELVIS WO CONTRAST CLINICAL HISTORY: Q61.3 Polycystic kidney unspecified TECHNIQUE: Multiplanar multisequence non-contrast MR images of the abdomen and pelvis were obtained. COMPARISON: MRI dated 07/28/2017, CT dated 08/01/2017 IMPRESSION: Abdomen: 1. Innumerable bilateral renal cysts, many with layering hemorrhagic products compatible with autosomal dominant polycystic kidney disease. These are incompletely evaluated without IV contrast. Within these confines, no suspicious solid/invasive mass is identified. 2. Liver involvement is also noted. The largest hepatic cyst measures 6.2 cm. Hepatic cysts appear slightly increased in size from prior examination; for example the 6.2 cm cyst was previously 5.5 cm. 3. Spleen is normal in size. Pancreas and adrenals are within normal limits. 4. Gallbladder is decompressed. There is no biliary dilatation. 5. The abdominal aorta is normal in caliber. There is no regional adenopathy. No suspicious osseous lesions are seen. Pelvis: 1. There is no pelvic mass or adenopathy. 2. The uterus is surgically absent. There is no adnexal mass. 3. The urinary bladder is unremarkable. 4. No suspicious osseous lesions are seen. [facility]-[id number] Performing Organization Address City/State/Zipcode Phone Number [facility] [address] [place] [address] after 03/19/2018 (Home) [place] [address] [facility] Self [address] [place] [address] (Home) [place] [address] Advance Directives Patient has advance care planning documents on file. For more information, please contact:[facility] [place] [phone]
--- NOTE | 2019-03-20 11:17 | RAD REPORT ---
EXAM DESCRIPTION: CT - Ct Stroke Brain Wo Cont - 03/20/2019 11:08 am CLINICAL HISTORY: blindness Headache, drowsiness, CVA symptomology COMPARISON: HEAD BRAIN W O CONTRAST dated 10/07/2010 TECHNIQUE: All CT scans are performed using dose optimization technique as appropriate and may inclu de automated exposure control or mA/KV adjustment according to patient size. FINDINGS: No intracranial hemorrhage, hydrocephalus or extra-axial fluid collection.No areas of brai n edema or evidence of midline shift. The paranasal sinuses and mastoids are clear. The calvarium is intact. IMPRESSION: No acute intracranial abnormality. The findings were discussed with DINORAH Tan on 03/20/2019 at 11:12 a.m. by telephone.
[2019-03-20 11:27] LABS: Absolute Lymphocytes (CBC) 1.2 K/uL (0.7-4.9); Basophils % 1.1 % (0-1.3); Eosinophils % 2.6 % (0-4.4); Hematocrit 27.5 % (36.0-45.0); Lymphocytes % 24.7 % (15.3-44.8); MPV 7.8 fL (7.6-11.3); Monocytes % 9.9 % (3.3-12.3); RBC Red Blood Cell Count 3.18 M/uL (3.86-4.86)
[2019-03-20 11:32] LABS: Protime INR 1.04
--- NOTE | 2019-03-20 11:46 | RAD REPORT ---
EXAM DESCRIPTION: RAD - Chest Single View - 03/20/2019 11:41 am CLINICAL HISTORY: MD alvarez Chest pain. COMPARISON: CHEST PA AND LAT 2 VIEW dated 02/28/2012; CHEST SINGLE VIEW dated 10/07/2010; CHEST PA AND LAT 2 VIEW dated 08/17/2010; CHEST PA AND LAT 2 VIEW dated 05/05/2006 FINDINGS: Portable technique limits examination quality. Mild pulmonary edema noted. Right-sided dialysis catheter is in place. The heart is mildly prominent size with trace pleural effusions. No displaced fractures. IMPRESSION: Mild volume overload.
--- NOTE | 2019-03-20 11:46 | RAD REPORT ---
EXAM DESCRIPTION: CT - Head angio - 03/20/2019 11:36 am CLINICAL HISTORY: CONFUSED Headache, drowsiness, CVA symptomology COMPARISON: Ct Stroke Brain Wo Cont dated 03/20/2019; HEAD BRAIN W O CONTRAST dated 10/07/2010 TECHNIQUE: CT angiography of the head was performed with MIPs. All CT scans are performed using dose optimization technique as appropriate and may include automated exposure control or mA/KV adjustment according to patient size. FINDINGS: No evidence of aneurysm is detected. No flow-limiting stenosis or vascular malformation id entified. The right vertebral artery appears to terminate in the PICA. The left vertebral artery is dominant. F etal origin of the right posterior communicating artery seen, normal variant. The visualized dural venous sinuses are patent. IMPRESSION: No significant flow abnormality is detected.
--- NOTE | 2019-03-20 11:48 | RAD REPORT ---
EXAM DESCRIPTION: CT - Neck Angio - 03/20/2019 11:39 am CLINICAL HISTORY: confused, loss of vision Headache, drowsiness, CVA symptomology. COMPARISON: <Comparisons> TECHNIQUE: CT angiography of the neck vessels was performed with MIPs. All CT scans are performed using dose optimization technique as appropriate and may include automated exposure control or mA/KV adjustment according to patient size. FINDINGS: A left aortic arch is identified. No significant flow abnormality is seen of the common carotid bilaterally. No significant stenosis is identified involving the cervical segments of both internal carotid arteri es. Normal flow is seen within both vertebral arteries. IMPRESSION: No significant flow abnormality of the neck vessels is identified.
[2019-03-20 11:52] LABS: Potassium 4.7 mmol/L (3.5-5.1)
[2019-03-20 12:20] LABS: Arterial Blood Carboxyhemoglob 1.6 % (0-1.5); Blood Gas Oxyhemoglobin 95.1 % (94-97); Blood O2 Saturation 97.3 % (92-98.5)
[2019-03-20] MEDS ORDERED: METOCLOPRAMIDE 10 MG/2mL INJ ONE (12:43)
[2019-03-20] MEDS ORDERED: DIPHENHYDRAMINE 50 MG/ML VIAL ONE (12:43)
--- NOTE | 2019-03-20 14:47 | ER ---
Nurse's Notes [facility] Name: Bruna Moore Age: 53 yrs Sex: Female : 1965 Arrival Date: 03/20/2019 Time: 11:00 Bed 2 Private MD: Diagnosis: Encephalopathy, unspecified;Altered mental status, unspecified;Seizure;Fever, unspecified Presentation: 03/20 11:00 Acuity: BEATRIZ 2 aa5 11:00 Presenting complaint: Pt's states "she started saying that she can't see and aa5 now she won't really talk to me". Pt currently not speaking and not following commands. Transition of care: patient was not received from another setting of care. Onset of symptoms was March 20, 2019. 11:00 Method Of Arrival: Wheelchair aa5 11:10 Risk Assessment: Do you want to hurt yourself or someone else? Unable to obtain. sv Initial Sepsis Screen: Does the patient meet any 2 criteria? Altered Mental Status. No. Patient's initial sepsis screen is negative. Does the patient have a suspected source of infection? No. Patient's initial sepsis screen is negative. Care prior to arrival: None. MANAGER PHARMACEUTICAL: 11:50 LMP N/A - Hysterectomy sv Historical: - Allergies: 11:10 Sulfa (Sulfonamide Antibiotics); aa5 - Home Meds: 11:20 Lisinopril Oral [Active]; Nexium Oral [Active]; Trazodone Oral [Active]; aa5 - PMHx: 11:10 Hypertension; Dialysis; Brain aneurysm; aa5 - PSHx: 11:01 Tubal ligation; Hysterectomy; bladder sling; hb 11:10 Dialysis catheter to chest; Double nephrectomy; cyst removed from back; aa5 - Immunization history:: Adult Immunizations unknown. - Social history:: Smoking status: unknown. - Ebola Screening: : No symptoms or risks identified at this time. Screenin:40 Abuse screen: Denies threats or abuse. Denies injuries from another. Nutritional sv screening: No deficits noted. Tuberculosis screening: No symptoms or risk factors identified. Fall Risk None identified. Assessment: 11:00 Reassessment: CHARITO DAMON CALLED, PT TO CT WITH LANIE NI. hb 11:10 Reassessment: Pt back from CT, accompanied by me. and DINORAH Benjamin at aa5 bedside. Pt was A\\T\\O x [address], not following commands, but verbal and pt stating "I can't see, I can't see", "my head, my head". . 11:15 General: Appears distressed, uncomfortable, well developed, Behavior is restless, sv uncooperative. Pain: Unable to use pain scale. Does not appear to understand pain scale. Patient appears confused, to be moaning, restless, FLACC scale score is 3 out of 10. Neuro: Level of Consciousness is confused, listless, Oriented to none Speech with expressive aphasia noted. Cardiovascular: Patient's skin is warm and dry. Rhythm is sinus rhythm. Cardiovascular: Dialysis shunt: in the anterior aspect of right upper chest, with no edema, no bleeding noted. Respiratory: Airway is patent Respiratory effort is even, unlabored, Respiratory pattern is regular, symmetrical. Derm: Skin is pale. 11:49 Reassessment: Patient appears in no apparent distress at this time. No changes from sv previously documented assessment. Patient and/or family updated on plan of care and expected duration. Pain level reassessed. 12:40 Reassessment: at bedside for a serum collection to test ammonia levels, pt family sv remains at bedside at this time, pt remains in exam room on stretcher in supine position with eyes closed, pt following commands but will not speak out when questioned at this time, will continue to monitor. 13:48 Reassessment: Patient appears in no apparent distress at this time. No changes from sv previously documented assessment. Patient and/or family updated on plan of care and expected duration. Pain level reassessed. 15:03 Reassessment: Patient appears in no apparent distress at this time. No changes from sv previously documented assessment. Patient and/or family updated on plan of care and expected duration. Pain level reassessed. Spouse informed that we are waiting for [facility] to call back. 16:21 Reassessment: Patient appears in no apparent distress at this time. No changes from sv previously documented assessment. Patient and/or family updated on plan of care and expected duration. Pain level reassessed. Pt repeatedly removing cardiac monitoring. Pt remains confused and not oriented. Family at the bedside. 17:20 Reassessment: pt family reports " shes having a seizure". pt observed right side lying sg position with seizure like activity, ERP notified, pt noted to be cyanotic in the face, suction applied to oral cavity, cleared of bloody sputum, orders received for RSI, seizure continues, pt to be intubated, pt family escorted to private room, ERP at bedside, Jeanie Ordonez RN at bedside, Joyce RN at bedside, Jayy RN at bedside, Lanie RN at bedside. RT over head paged. 17:30 Reassessment: RT at bedside for intubation, pt no longer seizing. sg 17:55 Reassessment: ERP Dayanna COPELAND at bedside for LP. sg 18:03 Reassessment: xray at bedside for repeat chest xray. Reassessment: CSF has been walked sg to outside lab. 18:34 General: Appears in no apparent distress. Behavior is unresponsive. intubated. Neuro: sv Level of Consciousness is unresponsive, intubated. Oriented to none. Cardiovascular: Rhythm is sinus rhythm. Respiratory: Airway via oral intubation Respiratory effort is even, unlabored, Respiratory pattern is regular, symmetrical. GI: NGT in place, to suction. Derm: Skin is pale. 19:21 General: Appears in no apparent distress. Behavior is Pt is sedated and intubated. ea Pain: Unable to use pain scale. FLACC scale score is 0 out of 10. Cardiovascular: Patient's skin is warm and dry. Respiratory: Airway via oral intubation Respiratory pattern is regular, symmetrical. GI: NGT in place, to suction. Derm: Skin is pale. 20:10 Reassessment: Report given to Nupur NI in neuro ICU [facility]. ea 20:11 Reassessment: Patient and/or family updated on plan of care and expected duration. Pain ea level reassessed. Pt remains sedated and intubated. Respirations even and unlabored, assisted by vent. No s/s of pain or discomfort noted at this time. 20:46 Reassessment: Life flight at facility, report given to life flight, pt remains sedated ea and intubated, no s/s of pain or discomfort, pt taken on vent and IV medication via stretcher per life flight crew. No s/s of pain or discomfort noted at this time. Pt tolerating well. CSF fluids sent with life [employer]. [facility] lab aware of CSF being sent with pt. Vital Signs: 11:10 BP 122 / 87; Pulse 83; Resp 14; Pulse Ox 96% on R/A; Pain 0/10; sv 11:45 BP 160 / 82; Pulse 76 MON; Resp 16; Temp 97.5; Pulse Ox 97% on R/A; sv 12:30 BP 166 / 85; Pulse 74; Resp 16; Pulse Ox 96% on R/A; sv 13:49 BP 156 / 92; Pulse 75; Resp 16; Pulse Ox 97% ; sv 14:40 BP 149 / 82; Pulse 72; Resp 18; Temp 97.8(A); Pulse Ox 97% on R/A; mh5 15:42 BP 135 / 76; Pulse 88; Resp 17; Temp 98.5(TE); Pulse Ox 100% ; mh5 16:45 BP 154 / 67; Pulse 84; Resp 16; Temp 97.6(TE); Pulse Ox 100% ; mh5 17:30 BP 186 / 101; Pulse 131; Resp 16 S; Pulse Ox 100% on 100% BVM; sg 17:30 Temp 100.9(R); sg 17:36 BP 186 / 101; Pulse 116 MON; Resp 16 A; Pulse Ox 100% on 50% FiO2 ETT vent; sg 17:36 BP 136 / 101; Pulse 116; sg 17:53 Weight 79.38 kg; sg 17:54 BP 151 / 78; Pulse 105; Resp 16; Pulse Ox 100% on 50% FiO2 ETT vent; sg 17:58 Weight 85 kg; sv 18:15 BP 145 / 80; Pulse 90; Resp 27; Pulse Ox 100% on 50% FiO2 ETT vent; sv 18:30 BP 146 / 85; Pulse 90; Resp 18; Pulse Ox 100% on 50% FiO2 ETT vent; sv 18:45 BP 145 / 83; Pulse 97; Resp 19; Pulse Ox 100% on 50% FiO2 ETT vent; sv 18:58 BP 155 / 87; Pulse 99 MON; Resp 16; Pulse Ox 100% on 50% FiO2 ETT vent; sv 19:23 BP 126 / 85; Pulse 90; Resp 17; Temp 100.4(R); Pulse Ox 100% on ETT vent; ea 19:50 BP 132 / 72; Pulse 83; Resp 17; Pulse Ox 100% on ETT vent; ea 20:00 BP 137 / 74; Pulse 83; Resp 17; Pulse Ox 100% on ETT vent; ea 20:40 BP 142 / 73; Pulse 81; Resp 17; Pulse Ox 100% on ETT vent; ea 11:45 Sinus Rhythm sv 18:58 Sinus Rhythm sv ED Course: 11:00 Patient arrived in ED. tr5 11:00 Russell Rg PA is PHCP. jr8 11:00 Michael Noriega MD is Attending Physician. jr8 11:10 CT Stroke Brain w/o Contrast In Process Unspecified. EDMS 11:20 Initial lab(s) drawn, by me, sent to lab. Inserted saline lock: 22 gauge in left sv forearm, using aseptic technique. ,using aseptic technique. diffusics Blood collected. Flushed left forearm. Missed attempt(s): 18 gauge in left antecubital area. Bleeding controlled, band aid applied, catheter tip intact. Inserted saline lock: 22 gauge in right forearm, using aseptic technique. ,using aseptic technique. diffusics, done by Lanie NI Blood collected. 11:21 EKG done, by technical system analyst. reviewed by Russell COPELAND. at1 11:24 Joyce Moreno, LAST is Primary Nurse. sv 11:30 Patient has correct armband on for positive identification. Placed in gown. Bed in low sv position. Call light in reach. Side rails up X2. Adult w/ patient. playground monitor on. Pulse ox on. NIBP on. Door closed. Head of bed elevated. 11:36 Triage completed. aa5 11:36 CT Head Angio In Process Unspecified. EDMS 11:39 CT Neck Angio In Process Unspecified. EDMS 11:40 Patient moved to radiology via stretcher. mh1 11:40 X-ray completed. Patient tolerated procedure well. mh1 11:40 Arm band placed on. sv 11:41 Patient moved back from radiology. mh1 11:41 Stroke CXR 1 View In Process Unspecified. EDMS 11:44 Patient moved back from radiology. sv 11:49 Awaiting lab results, Awaiting radiology results. Awaiting re-evaluation by ER provider.sv 11:54 Notified ED physician of a critical lab result(s). CREAT 9.76. hb 12:52 Initial lab(s) drawn, by me, sent to lab. an ammonia on ice has been sent, lab notified.sg 13:17 Awaiting lab results. sv 13:48 Awaiting disposition. sv 14:13 initiated transfer with scientologist at this time. ms 16:21 transfer approval from receiving facility. sv 17:30 Assisted provider with intubation using 7.5 mm ETT via oral route. ET tube secured at sg 23cm at the lips. Set up intubation tray. Intubated by Russell COPELAND Patient tolerated well. 17:34 NGT: inserted 14 Fr. via right nare. verified placement of air over stomach, verified sg return of gastric contents, to intermittent suction. Returned bright red blood. Patient tolerated well. 17:41 [facility] declined transfer due to no ICU beds at this time. ms 17:41 initiated transfer to [facility] with [place]. ms 17:41 doing - with [facility]. ms 17:55 Assist provider with lumbar puncture: Set up LP tray. Performed by Russell COPELAND CSF sg is clear. Puncture site dressed with band aid, Procedure was successful. Patient tolerated well. 18:57 XRAY CXR (1 view) In Process Unspecified. EDMS 19:06 Primary Nurse role handed off by Joyce Moreno RN sv 19:06 Report given to Wilma NI and Ariela NI. sv 19:20 Ariela Arenas, LAST is Primary Nurse. ea 20:48 Patient transferred, IV remains in place. ea Administered Medications: 12:48 Drug: Reglan 10 mg Route: IVP; Site: right forearm; sg 13:11 Follow up: Response: No adverse reaction sv 12:48 Drug: Benadryl 25 mg Route: IVP; Site: left forearm; sg 13:11 Follow up: Response: No adverse reaction sv 17:25 Drug: Rocuronium 50 mg Route: IVP; Site: right forearm; sg 18:00 Follow up: Response: No adverse reaction sg 17:26 Drug: Etomidate 20 mg Route: IVP; Site: left forearm; sg 18:00 Follow up: Response: No adverse reaction sg 17:26 Drug: Ativan 0.5 mg Route: IVP; Site: right forearm; sg 17:55 Follow up: Response: No adverse reaction sg 17:30 Drug: NS 0.9% 250 ml Route: IV; Rate: bolus; Site: left forearm; sg 18:50 Follow up: Response: No adverse reaction; IV Status: Completed infusion; IV Intake: sv 250ml 17:34 Drug: Versed 4 mg Route: IVP; Site: left antecubital; sg 18:00 Follow up: Response: No adverse reaction sg 17:36 Drug: Propofol 5 mcg/kg/min Route: IV; Rate: calculated rate; Site: left antecubital; sg 17:36 Follow up: BP 136 / 101; Pulse 116 bpm; Rate change 20 mcg/kg/min sg 18:42 Follow up: Rate change 30 calculated rate sv 18:49 Follow up: Rate change 35 calculated rate sv 20:51 Follow up: Response: No adverse reaction; IV Status: Infusion continued upon transfer ea 17:38 Drug: Tylenol Suppository 650 mg Route: PA; sg 19:20 Follow up: Response: Temperature is decreased ea 17:55 Drug: Rocephin 2 grams Route: IV; Rate: calculated rate; Site: right forearm; sg 18:32 Follow up: Response: No adverse reaction; IV Status: Completed infusion; IV Intake: 20mlsg 17:55 Drug: Decadron - Dexamethasone 10 mg Route: IVP; Site: right forearm; sg 18:34 Follow up: Response: No adverse reaction sg 18:20 Drug: Keppra 1000 mg Route: IV; Rate: 1 calculated rate; Site: right forearm; sg 18:49 Follow up: Response: No adverse reaction; IV Status: Completed infusion; IV Intake: sv 100ml 18:25 Drug: vancoMYCIN 1 grams Route: IVPB; Infused Over: 2 hrs; Site: right forearm; sg 20:52 Follow up: Response: No adverse reaction; IV Status: Infusion continued upon transfer ea 18:25 Drug: Acyclovir 10 mg/kg Route: IVPB; Site: right forearm; sg 20:53 Follow up: Response: No adverse reaction; IV Status: Completed infusion ea Point of Care Testing: Blood Glucose: 11:10 Blood Glucose: 97 mg/dL; aa5 17:26 Blood Glucose: 130 mg/dL; sg Ranges: Intake: 18:32 IV: 20ml; Total: 20ml. sg 18:49 IV: 100ml; Total: 120ml. sv 18:50 IV: 250ml; Total: 370ml. sv Outcome: 14:46 ER care complete, transfer ordered by MD. jr8 19:15 Instructed on family instructed on need for transfer, verbalized the understanding ea 20:47 Condition: stable ea 20:[address] [facility], Transfer form completed. ea 20:54 Patient left the ED. ea Signatures: Dispatcher [employer] EDMS Joyce Moreno RN RN sv Gay, Steven, RN RN Celina Gaitan 1 Kayce Li ms, Audri, RN RN aa5 Roszak, Josh, PA PA jr8 Heydi Rodriguez, out and out cigar maker hand EKG Tat1 Jeanie Teixeira RN RN hb Martinez, Maria mh Ariela Arenas RN RN ea Rodriguez, Tommie, RN RN tr5 Corrections: (The following items were deleted from the chart) 11:24 11:01 Allergies: No Known Allergies; hb aa5 11:37 11:10 Reassessment: Pt back from CT, accompanied by me. and DINORAH Benjamin at bedside . aa5 15:44 15:42 BP 135 / 76; Pulse 88bpm; Resp 17bpm; Pulse Ox 100%; mh5 mh5 17:56 17:41 doing [place] with [facility] at this time ms ms 18:33 17:36 BP 176 / 86; Pulse 98bpm; Resp 18bpm; Pulse Ox 100% RA; Temp 97.9F Temporal; mh5 sv 18:50 17:55 Response: No adverse reaction; IV Status: Completed infusion sv 20:51 20:46 Reassessment: Life flight at facility, report given to life flight, pt remains ea sedated and intubated, no s/s of pain or discomfort, pt taken on vent and IV medication via stretcher per life flight crew. No s/s of pain or discomfort noted at this time. Pt tolerating well. ea
--- NOTE | 2019-03-20 14:47 | EDPHYS ---
Physician Documentation [facility] Name: Bruna Moore Age: 53 yrs Sex: Female : 1965 Arrival Date: 03/20/2019 Time: 11:00 Bed 2 Private MD: ED Physician Michael Noriega HPI: 03/20 11:15 This 53 yrs old Female presents to ER via Unassigned with complaints of AMS. jr8 11:15 The patient's problem is reported as altered mental status, dysphasia, slurred speech, jr8 slow speech, visual difficulty. Onset: The symptoms/episode began/occurred acutely, today, at 10:00. Duration: The episode is continuous. Context: the episode(s) was witnessed, by family, symptoms became apparent at 10:00. occurred at home, occurred while the patient was at rest. The symptoms are alleviated by nothing. The symptoms are aggravated by nothing. Associated signs and symptoms: Pertinent positives: confusion, headache. Severity of symptoms: At their worst the symptoms were moderate in the emergency department the symptoms are unchanged. Patient's baseline: Neuro: alert and fully oriented, Motor: no deficits, Ambulation: walks without assistance, Speech: normal. The patient has not experienced similar symptoms in the past. The patient has been recently seen by a physician:. Patient recently had bilateral nephrectomy secondary to PKD. Stated that the surgery was 10 days ago. Had been fine since then. After being up for a while this morning had sudden onset posterior headache with vision loss and confusion. Brought to ED immediately POV at that time. 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 - Social history:: Smoking status: unknown. - Ebola Screening: : No symptoms or risks identified at this time. ROS: 11:15 Unable to obtain ROS due to altered mental status. jr8 Exam: 11:15 Radiologist reports: Negative for acute findings jr8 11:15 Head/Face: Normocephalic, atraumatic. Eyes: Pupils equal round and reactive to light, jr8 extra-ocular motions intact. Lids and lashes normal. Conjunctiva and sclera are non-icteric and not injected. Cornea within normal limits. Periorbital areas with no swelling, redness, or edema. ENT: Nares patent. No nasal discharge, no septal abnormalities noted. Tympanic membranes are normal and external auditory canals are clear. Oropharynx with no redness, swelling, or masses, exudates, or evidence of obstruction, uvula midline. Mucous membranes moist. Neck: Trachea midline, no thyromegaly or masses palpated, and no cervical lymphadenopathy. Supple, full range of motion Cardiovascular: Regular rate and rhythm with a normal S1 and S2. No gallops, murmurs, or rubs. Normal PMI, no JVD. No pulse deficits. Respiratory: Lungs have equal breath sounds bilaterally, clear to auscultation and percussion. No rales, rhonchi or wheezes noted. No increased work of breathing, no retractions or nasal flaring. Abdomen/GI: Soft, non-tender, with normal bowel sounds. No distension or tympany. No guarding or rebound. No evidence of tenderness throughout. Skin: Warm, dry with normal turgor. Normal color with no rashes, no lesions, and no evidence of cellulitis. MS/ Extremity: Pulses equal, no cyanosis. vascular intact. Full, normal range of motion. 11:15 Neuro: Orientation: Not oriented to person, place, time, situation, Mentation: slow to respond, confused, unable to follow commands, Memory: unable to test, Cranial nerves: unable to test, Cerebellar function: unable to test, Motor: unable to test, Sensation: unable to test, Gait: not tested. Deep tendon reflexes are 2+ (normal) in the right bicep, right patellar, left bicep and left patellar, seizure activity, is not displayed by the patient, Abnormal movements: there are no abnormal movements. Vital Signs: 11:10 BP 122 / 87; Pulse 83; Resp 14; Pulse Ox 96% on R/A; Pain 0/10; sv 11:45 BP 160 / 82; Pulse 76 MON; Resp 16; Temp 97.5; Pulse Ox 97% on R/A; sv 12:30 BP 166 / 85; Pulse 74; Resp 16; Pulse Ox 96% on R/A; sv 13:49 BP 156 / 92; Pulse 75; Resp 16; Pulse Ox 97% ; sv 14:40 BP 149 / 82; Pulse 72; Resp 18; Temp 97.8(A); Pulse Ox 97% on R/A; mh5 15:42 BP 135 / 76; Pulse 88; Resp 17; Temp 98.5(TE); Pulse Ox 100% ; mh5 16:45 BP 154 / 67; Pulse 84; Resp 16; Temp 97.6(TE); Pulse Ox 100% ; mh5 17:30 BP 186 / 101; Pulse 131; Resp 16 S; Pulse Ox 100% on 100% BVM; sg 17:30 Temp 100.9(R); sg 17:36 BP 186 / 101; Pulse 116 MON; Resp 16 A; Pulse Ox 100% on 50% FiO2 ETT vent; sg 17:36 BP 136 / 101; Pulse 116; sg 17:53 Weight 79.38 kg; sg 17:54 BP 151 / 78; Pulse 105; Resp 16; Pulse Ox 100% on 50% FiO2 ETT vent; sg 17:58 Weight 85 kg; sv 18:15 BP 145 / 80; Pulse 90; Resp 27; Pulse Ox 100% on 50% FiO2 ETT vent; sv 18:30 BP 146 / 85; Pulse 90; Resp 18; Pulse Ox 100% on 50% FiO2 ETT vent; sv 18:45 BP 145 / 83; Pulse 97; Resp 19; Pulse Ox 100% on 50% FiO2 ETT vent; sv 18:58 BP 155 / 87; Pulse 99 MON; Resp 16; Pulse Ox 100% on 50% FiO2 ETT vent; sv 19:23 BP 126 / 85; Pulse 90; Resp 17; Temp 100.4(R); Pulse Ox 100% on ETT vent; ea 19:50 BP 132 / 72; Pulse 83; Resp 17; Pulse Ox 100% on ETT vent; ea 20:00 BP 137 / 74; Pulse 83; Resp 17; Pulse Ox 100% on ETT vent; ea 20:40 BP 142 / 73; Pulse 81; Resp 17; Pulse Ox 100% on ETT vent; ea 11:45 Sinus Rhythm sv 18:58 Sinus Rhythm sv Procedures: 17:41 Intubation: Ventilated with 100% NRB prior to procedure. O2 saturation prior to 8 procedure was 100 %. Intubated orally using # 4 Graciela blade with 7.5 mm ETT. was successful on first attempt. Ventilated with Ambu bag. ventilator. Cricoid pressure applied during procedure. Tube secured with ETT saavedra at center of mouth measured 23 cm at lip. Placement verified by CXR, CO2 detector with (+) color change, auscultating bilateral breath sounds, O2 saturation after procedure was 100 %. Patient tolerated well. 18:00 Lumbar Puncture: Patient placed in right lateral decubitus position. Prepped with [facility] Betadine. Draped using sterile technique. Collected 8 ml's of clear fluid. Sample sent to lab. Puncture site dressed with band aid, Patient tolerated well. MDM: 11:00 Patient medically screened. [facility] 11:15 ED course: UNable to get good neurological assessment, patient repetitive speech, rn states cannot see, will not hold up or move either extremity, doesn't follow commands, acting encephalopathic. Pt with known aneurysm per , and just had bilateral nephrectomy 10 days ago for PKD. Also on dialysis. CT head no acute findings, will get stat ct angio and can have dialysis afterward. SPoke with , not TPA candidate given recent nephrectomy just 10 days ago and can't even get good neuro exam. . 14:41 Data reviewed: vital signs, nurses notes, lab test result(s), EKG, radiologic studies, [facility] CT scan, plain films. Data interpreted: Pulse oximetry: on room air is 97 %. Interpretation: normal. Counseling: I had a detailed discussion with the patient and/or guardian regarding: the historical points, exam findings, and any diagnostic results supporting the discharge/admit diagnosis, lab results, radiology results, the need to transfer to another facility, [facility] does not immediately have the required specialist. ED course: Discussed with that we are unable to formulate a diagnosis based on labs and imaging. Nothing grossly acute present. Recommend transfer for MRI and neurologic evaluation for general Encephalopathy. is good with this. Patient recently D/C'd from [facility] for her bilateral nephrectomy. Will attempt transfer there first as this is there first choice. 15:32 ED course: Neurology at [facility] consulted and accepted patient. Awaiting medicine to [facility] call back . 17:41 ED course: Patient has sudden onset fever and seizure. Patient intubated to protect [facility] airway at that time as she was not coming out of postictal state and not protecting airway. Meningitis precautions initiated as well. [facility] does not have ICU available so now having to go to another facility . 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 Pt intubated for airway protection, seizure short-lived, no hx of seizures. Upon palpation patient warmer than before, core temp 101. Blood cultures obtained and sent, will get stat LP to rule out meningitis/meningoencephalitis. updated. Called [facility] back to update and request ICU bed, states no ICU beds. Will have to transfer to [facility] given to neuro here. Awaiting call back from [facility]. . 18:30 ED course: states surgeon who performed nephrectomy also has privileges at [facility]. . 03/20 11:03 Order name: Basic Metabolic Panel; Complete Time: 11:59 [facility] 03/20 11:03 Order name: CBC with Diff; Complete Time: 11:45 [facility] 03/20 11:03 Order name: Protime (+inr); Complete Time: 11:54 [facility] 03/20 11:03 Order name: Ptt, Activated; Complete Time: 11:54 [facility] 03/20 11:22 Order name: glucometer results - FOR PT WITH NO ID; Complete Time: 11:45 [facility] 03/20 11:03 Order name: CT Stroke Brain w/o Contrast; Complete Time: 11:29 [facility] 03/20 11:03 Order name: Stroke CXR 1 View; Complete Time: 11:54 [facility] 03/20 11:59 Order name: AMMONIA; Complete Time: 13:30 [facility] 03/20 11:59 Order name: ABG; Complete Time: 12:51 [facility] 03/20 17:53 Order name: Csf Culture 03/20 17:53 Order name: Fluid Cell Count,Body; Complete Time: 07:56 03/20 17:53 Order name: Spinal Fluid Profile; Complete Time: 07:56 03/20 11:15 Order name: CT Head Angio; Complete Time: 11:54 rn 03/20 11:15 Order name: CT Neck Angio; Complete Time: 11:54 rn 03/20 17:41 Order name: XRAY CXR (1 view); Complete Time: 07:56 sg 03/20 11:03 Order name: EKG; Complete Time: 11:06 03/20 11:03 Order name: Accucheck; Complete Time: 11:24 03/20 11:03 Order name: Cardiac monitoring; Complete Time: 11:24 03/20 11:03 Order name: EKG - Nurse/Tech; Complete Time: 11:24 03/20 11:03 Order name: IV Saline Lock; Complete Time: 11:24 03/20 11:03 Order name: Labs collected and sent; Complete Time: 11:24 03/20 11:03 Order name: NPO; Complete Time: 11:24 03/20 11:03 Order name: O2 Per Protocol; Complete Time: 11:24 03/20 11:03 Order name: O2 Sat Monitoring; Complete Time: 11:24 03/20 11:03 Order name: Stroke Swallow Screen; Complete Time: 13:09 03/20 17:53 Order name: LP Consents; Complete Time: 18:08 sg 03/20 17:53 Order name: LP Setup; Complete Time: 18:08 sg Administered Medications: 12:48 Drug: Reglan 10 mg Route: IVP; Site: right forearm; sg 13:11 Follow up: Response: No adverse reaction sv 12:48 Drug: Benadryl 25 mg Route: IVP; Site: left forearm; sg 13:11 Follow up: Response: No adverse reaction sv 17:25 Drug: Rocuronium 50 mg Route: IVP; Site: right forearm; sg 18:00 Follow up: Response: No adverse reaction sg 17:26 Drug: Etomidate 20 mg Route: IVP; Site: left forearm; sg 18:00 Follow up: Response: No adverse reaction sg 17:26 Drug: Ativan 0.5 mg Route: IVP; Site: right forearm; sg 17:55 Follow up: Response: No adverse reaction sg 17:30 Drug: NS 0.9% 250 ml Route: IV; Rate: bolus; Site: left forearm; sg 18:50 Follow up: Response: No adverse reaction; IV Status: Completed infusion; IV Intake: sv 250ml 17:34 Drug: Versed 4 mg Route: IVP; Site: left antecubital; sg 18:00 Follow up: Response: No adverse reaction sg 17:36 Drug: Propofol 5 mcg/kg/min Route: IV; Rate: calculated rate; Site: left antecubital; sg 17:36 Follow up: BP 136 / 101; Pulse 116 bpm; Rate change 20 mcg/kg/min sg 18:42 Follow up: Rate change 30 calculated rate sv 18:49 Follow up: Rate change 35 calculated rate sv 20:51 Follow up: Response: No adverse reaction; IV Status: Infusion continued upon transfer ea 17:38 Drug: Tylenol Suppository 650 mg Route: SD; sg 19:20 Follow up: Response: Temperature is decreased ea 17:55 Drug: Rocephin 2 grams Route: IV; Rate: calculated rate; Site: right forearm; sg 18:32 Follow up: Response: No adverse reaction; IV Status: Completed infusion; IV Intake: 20mlsg 17:55 Drug: Decadron - Dexamethasone 10 mg Route: IVP; Site: right forearm; sg 18:34 Follow up: Response: No adverse reaction sg 18:20 Drug: Keppra 1000 mg Route: IV; Rate: 1 calculated rate; Site: right forearm; sg 18:49 Follow up: Response: No adverse reaction; IV Status: Completed infusion; IV Intake: sv 100ml 18:25 Drug: vancoMYCIN 1 grams Route: IVPB; Infused Over: 2 hrs; Site: right forearm; sg 20:52 Follow up: Response: No adverse reaction; IV Status: Infusion continued upon transfer ea 18:25 Drug: Acyclovir 10 mg/kg Route: IVPB; Site: right forearm; sg 20:53 Follow up: Response: No adverse reaction; IV Status: Completed infusion ea Point of Care Testing: Blood Glucose: 11:10 Blood Glucose: 97 mg/dL; aa5 17:26 Blood Glucose: 130 mg/dL; sg Ranges: Critical Glucose Levels:Adult <50 mg/dl or >400 mg/dl <40 mg/dl or >180 mg/dl Disposition: 17:54 Critical Care:. rn Disposition: 03/20/19 14:[address] [facility]. Diagnosis are Encephalopathy, unspecified, Altered mental status, unspecified, Seizure, Fever, unspecified. - Reason for transfer: Higher level of care. - Accepting physician is Dr. Giordano. - Condition is Fair. - Problem is new. - Symptoms are unchanged. Critical care time excluding procedures: 17:54 Critical care time: Bedside Care: 35 minutes, Consultation: 10 minutes, Family rn Intervention: 10 minutes. Total time: 55 minutes 18:04 Critical care time: Bedside Care: 20 minutes, Consultation: 15 minutes, Family jr8 Intervention: 20 minutes. Total time: 55 minutes Addendum: 03/26/2019 00:50 Co-signature as Attending Physician, Michael Noriega MD. r n Signatures: Dispatcher [employer] [facility] Joyce Moreno, RN RN Jarod Tineo RN Michael Luu MD MD rn Calderon, Audri RN RN aa5 Russell Rg PA PA jr8 Jeanie Teixeira RN RN Ariela Arenas RN RN ea Corrections: (The following items were deleted from the chart) 03/20 11:24 11:01 Allergies: No Known Allergies; aa5 13:17 11:59 Mojica ordered. 8 14:46 14:46 03/20/2019 14:46 Transfer ordered to [facility]. Diagnosis is jr8 Encephalopathy, unspecified. Reason for transfer: Higher level of care. Accepting physician is [facility]. Condition is Fair. Problem is new. Symptoms are unchanged. 8 16:39 12:01 URINE DRUG SCREEN+CHEM UR.LAB.BRZ ordered. [facility] EDHI 17:52 14:46 03/20/2019 14:46 Transfer ordered to [facility]. Diagnosis is rn Encephalopathy, unspecified; Altered mental status, unspecified. Reason for transfer: Higher level of care. Accepting physician is [facility]. Condition is Fair. Problem is new. Symptoms are unchanged. jr8 17:54 17:52 03/20/2019 14:[address] [facility]. Diagnosis is rn Encephalopathy, unspecified; Altered mental status, unspecified. Reason for transfer: Higher level of care. Accepting physician is . Condition is Fair. Problem is new. Symptoms are unchanged. rn 18:05 17:54 03/20/2019 14:[address] [facility]. Diagnosis is jr8 Encephalopathy, unspecified; Altered mental status, unspecified. Reason for transfer: Higher level of care. Accepting physician is Dr. Giordano. Condition is Fair. Problem is new. Symptoms are unchanged. rn 20:40 18:58 CSF Bacterial Antigens (Tube 1+BA.LAB.BRZ ordered. EDMS EDMS 20:54 18:05 03/20/2019 14:[address] [facility]. Diagnosis is ea Encephalopathy, unspecified; Altered mental status, unspecified; Seizure; Fever, unspecified. Reason for transfer: Higher level of care. Accepting physician is Dr. Giordano. Condition is Fair. Problem is new. Symptoms are unchanged. jr8
[2019-03-20] MEDS ORDERED: LORazepam 2 MG/ML VIAL ONE (17:34)
[2019-03-20] MEDS ORDERED: RSI MEDICATION KIT IV ONE (17:37)
[2019-03-20] MEDS ORDERED: NA CHLORIDE 0.9% 1,000 ML ONE (17:39)
[2019-03-20] MEDS ORDERED: ROCURONIUM 50 MG/5 ML VIAL IV ONE (17:40)
[2019-03-20] MEDS ORDERED: MIDAZOLAM HCL 2 MG/2 ML INJ ONE (17:47)
[2019-03-20] MEDS ORDERED: PROPOFOL 1,000 MG/100 ML VIAL IV ONE (17:47)
[2019-03-20] MEDS ORDERED: ACETAMINOPHEN 650MG/RECT SUPP PR ONE (17:48)
[2019-03-20] MEDS ORDERED: ETOMIDATE 20 MG/10 ML VIAL IV ONE (18:00)
[2019-03-20] MEDS ORDERED: dexAMETHasone 10 MG/ML VIAL ONE ×2 (18:15→18:20)
[2019-03-20] MEDS ORDERED: CEFTRIAXONE/SWI 1gm 0 GM/0 ML SYR ONE (18:15)
[2019-03-20] MEDS ORDERED: VANCOMYCIN/NS 1 gm 1 GM/250 ML BAG IV SCH (18:15)
[2019-03-20] MEDS ORDERED: levETIRAcetam 1,000 MG in NA CHLORIDE 0.9% 100 ML IV ONE (18:15)
[2019-03-20 18:33] LABS: CSF Glucose 49 mg/dL (40-70)
[2019-03-20] MEDS ORDERED: CEFTRIAXONE/SWI 1gm 2 GM/20 ML SYR ONE (18:34)
--- NOTE | 2019-03-20 18:55 | RAD REPORT ---
EXAM DESCRIPTION: RAD - Chest Single View - 03/20/2019 5:49 pm CLINICAL HISTORY: post intubation.;Post ETT Chest pain. COMPARISON: <Comparisons> FINDINGS: Portable technique limits examination quality. The patient has been intubated. The tip of the ET tube is above the pipo approximately 2 cm. Enteri c tube descends into the stomach. Right-sided venous catheter is in place, unchanged.
[2019-03-20] MEDS ORDERED: VANCOMYCIN 1.75 GM in NA CHLORIDE 0.9% 500 ML IVPB ONE (19:00)
[2019-03-20] MEDS ORDERED: NA CHLORIDE 0.9% IVPB ONE (19:00)
[2019-03-20] MEDS ORDERED: ACYCLOVIR IVPB ONE (19:00)
[2019-03-20 19:24] LABS: Fluid Total Volume 2 ml
[2019-03-20 19:25] LABS: Appearance CLEAR (CLEAR); Body Fluid Source CSF; Body Fluid WBC 1 /mm^3; Color of fluid Colorless (COLORLESS)
[2019-03-20 19:34] LABS: Appearance CLEAR (CLEAR); Body Fluid Source CSF; Color of fluid Colorless (COLORLESS)
[2019-03-20 19:35] LABS: Body Fluid WBC 1 /mm^3
--- NOTE | 2019-03-21 07:04 | EKG ---
Test Date: 2019-03-20 Test Time: 11:18:32 Sign Poster: DOMINIQUE MEASUREMENT RESULTS: Intervals: Rate: 70 AR: 174 QRSD: 74 QT: 404 QTc: 436 [place]: P: 32 AR: 174 QRS: 40 T: 60 INTERPRETIVE STATEMENTS: Normal sinus rhythm Normal ECG Compared to ECG 08/17/2012 10:34:05 Sinus bradycardia no longer present Electronically Signed On 03-21-19 07:02:33 CDT by Madhu Lozada
== END 2019-03-20 20:54 | disposition short-term general hospital (02) ==
LOC: ER 10:58
PROC: 0BH17EZ Insertion of Endotracheal Airway into Trachea, Via Natural or Artificial Opening (ICD-10-PCS; principal; 2019-03-20)
PROC: 5A1935Z Respiratory Ventilation, Less than 24 Consecutive Hours (ICD-10-PCS; 2019-03-20)
PROC: 009U3ZX Drainage of Spinal Canal, Percutaneous Approach, Diagnostic (ICD-10-PCS; 2019-03-20)
DX: G93.40 Encephalopathy, unspecified (principal); R56.9 Unspecified convulsions; R50.9 Fever, unspecified; I10 Essential (primary) hypertension; Z88.2 Allergy status to sulfonamides; Z90.5 Acquired absence of kidney; Z99.2 Dependence on renal dialysis
CPT/HCPCS: 31500; 36415; 62270; 70450; 70496; 70498; 71045; 80048; 82140; 82805; 82945; 82962; 84157; 85025; 85610; 85730; 87070; 89050; 93005; 94002; 99285; J0133; J0696; J1100; J1953; J2250; J2704; J2765; J7030; Q9967